=== PATIENT | female | born 1965 | race Caucasian/White ===

== ENCOUNTER 2018-12-25 19:07 | Inpatient (IN) | payer OTHER ==
[2018-12-25 19:42] VITALS: BMI 28.7
--- NOTE | 2018-12-25 20:13 | HP ---
COWS - Scale Resting Pulse: 1= [place] 81-100 Sweatin=Flushed/Facial Moisture Restless Observation: 1= Difficult to Sit Still Pupil Size: 2= Moderately Dilated Bone or Joint Aches: 2= Severe Diffuse Aches Runny Nose/ Eye Tearin= Constantly Teary/Runny GI Upset > 30mins: 1= Stomach Cramp Tremor Observation: 4= Gross Tremor/Twitching Yawning Observation: 0= None Anxiety or Irritability: 1=Feels Anxious/Irritable Goose Flesh Skin: 0=Smooth Skin COWS Score: 18 CIWA Score Nausea/Vomitin Muscle Tremors: 5 Anxiety: 2 Agitation: 3 Paroxysmal Sweats: 2 Orientation: 0-Oriented Tacttile Disturbances: 2-Mild Itch/Numbness/Burn Auditory Disturbances: 2-Mild Harshness/Frighten Visual Disturbances: 2-Mild Sensitivity Headache: 2-Mild CIWA-Ar Total Score: 23 - Admission Criteria [facility]ASAS Guidelines: Admission for Medically Managed Detox: Requires at least one of the followin. CIWA greater than 12 2. Seizures within the past 24 hours 3. Delirium tremens within the past 24 hours 4. Hallucinations within the past 24 hours 5. Acute intervention needed for co occurring medical disorder 6. Acute intervention needed for co occurring psychiatric disorder 7. Severe withdrawal that cannot be handled at a lower level of care (continued vomiting, continued diarrhea, abnormal vital signs) requiring intravenous medication and/or fluids 8. Admission ROS [facility] Chief Complaint: DEPENDENT ON HEROIN, ETOH, COCAINE AND XANAX Allergies/Adverse Reactions: Allergies Allergy/AdvReac Type Severity Reaction Status Date / Time No Known Allergies Allergy Verified 12/25/18 19:53 History of Present Illness: THE PT. IS REQUESTING ADMISSION TO THE DETOX UNIT AND CAME FOR MEDICAL CLEARANCE AND H AND PE - Ebola screening Have you traveled outside of the country in the last 21 days: No (N) Have you had contact with anyone from an Ebola affected area: No Do you have a fever: No - Review of Systems Constitutional: See HPI, Loss of Appetite, Malaise, Weakness EENT: reports: See HPI Respiratory: reports: See HPI, SOB with Exertion, Wheezing Cardiac: reports: See HPI GI: reports: See HPI, Nausea, Poor Appetite, Abdominal cramping : reports: See HPI Musculoskeletal: reports: See HPI, Muscle Pain, Muscle Weakness Integumentary: reports: See HPI, Flushing, Sweating Neuro: reports: See HPI, Headache, Tremors, Weakness Endocrine: reports: See HPI Hematology: reports: See HPI Psychiatric: reports: Judgement Intact, Orientated x3, Anxious, Depressed Patient History - Patient Medical History Hx Asthma: Yes Hx Chronic Obstructive Pulmonary Disease (COPD): No Hx Cardiac Disorders: No Hx Hypertension: No Hx Seizures: No Hx Diabetes: No Hx Gastrointestinal Disorders: No Hx Genitourinary Disorders: No Hx Sexually Transmitted Disorders: No Hx Renal Disease (ESRD): No Hx Human Immunodeficiency Virus (HIV): Yes Hx Hepatitis C: No Hx Depression: Yes (and anxiety) Hx Suicide Attempt: No Hx Schizophrenia: No - Patient Surgical History Past Surgical History: No Hx Neurologic Surgery: No Hx Cataract Extraction: No Hx Cardiac Surgery: No Hx Lung Surgery: No Hx Breast Surgery: No Hx Breast Biopsy: No Hx Abdominal Surgery: No Hx Appendectomy: No Hx Cholecystectomy: No Hx Genitourinary Surgery: No Hx Section: No Hx Orthopedic Surgery: Yes (D[facility]NELL. HIP REPLACEMENTS) Anesthesia Reaction: No - PPD History Previous Implant?: Yes Documented Results: Negative w/o proof - Reproductive History Patient is a Female of Child Bearing Age (11 -55 yrs old): Yes LMP comment: 2017 Patient : No - Smoking Cessation Smoking history: Current every day smoker Have you smoked in the past 12 months: Yes Aproximately how many cigarettes per day: 3 Hx Chewing Tobacco Use: No Initiated information on smoking cessation: Yes 'Breaking Loose' booklet given: 12/25/18 - Substance & Tx. History Hx Alcohol Use: Yes Hx Substance Use: Yes Substance Use Type: Alcohol, Cocaine, Heroin, Tranquilizers - Substances abused Alcohol Substance route: Oral Frequency: Daily Amount used: LIQUOR- 2 PINTS, BEER- 1 QUART Age of first use: 19 Date of last use: 12/24/18 Heroin Substance route: Inhalation Frequency: Daily Amount used: 10 BAGS Age of first use: 19 Date of last use: 12/24/18 Alprazolam (Xanax) Substance route: Oral Frequency: Daily Amount used: 8MG Age of first use: 19 Date of last use: 12/24/18 Cocaine Substance route: Inhalation Frequency: Daily Amount used: $20N WORTH Age of first use: 19 Date of last use: 12/24/18 Family Disease History - Family Disease History Family History: Denies Admission Physical Exam [facility] - Vital Signs Vital Signs: Vital Signs - 24 hr 12/25/18 12/25/18 19:39 19:53 Temperature 98.1 F 98.1 F Pulse Rate 86 86 Respiratory 18 18 Rate Blood Pressure 146/76 146/76 - Physical General Appearance: Yes: No Apparent Distress, Nourished, Appropriately Dressed , Tremorous, Sweating, Anxious HEENTM: Yes: Hearing grossly Normal, Normocephalic, Normal Voice, JAMIE, Pharynx Normal, Nasal Congestion Respiratory: Yes: Chest Non-Tender, No Respiratory Distress, No Accessory Muscle Use, Rhonchi, Wheezing Neck: Yes: No masses,lesions,Nodules, Supple, Trachea in good position Breast: Yes: Breast Exam Deferred, Axillae without masses Cardiology: Yes: Regular Rhythm, S1, S2, Tachycardia Abdominal: Yes: Normal Bowel Sounds, Non Tender, Soft, Distended Back: Yes: Normal Inspection Musculoskeletal: Yes: full range of Motion, Gait Steady, Pelvis Stable, Muscle Pain, Muscle weakness Extremities: Yes: Normal Capillary Refill, Normal Inspection, Normal Range of Motion, Non-Tender, Tremors Neurological: Yes: sliver cutter II-XII NML intact, Fully Oriented, Alert, Motor Strength 5/5, Normal Response Integumentary: Yes: Normal Color, Warm, Moist Lymphatic: Yes: Within Normal Limits - Diagnostic (1) Heroin dependence Current Visit: Yes Status: Chronic (2) EtOH dependence Current Visit: Yes Status: Chronic Qualifiers: Substance use status: uncomplicated Qualified Code(s): F10.20 - Alcohol dependence, uncomplicated (3) Cocaine dependence Current Visit: Yes Status: Chronic Qualifiers: Substance use status: uncomplicated Qualified Code(s): F14.20 - Cocaine dependence, uncomplicated (4) Benzodiazepine dependence Current Visit: Yes Status: Chronic (5) Anxiety and depression Current Visit: Yes Status: Chronic (6) AIDS Current Visit: Yes Status: Chronic (7) Asthma Current Visit: Yes Status: Chronic Qualifiers: Asthma severity: unspecified severity Asthma complication type: uncomplicated Cleared for Admission [facility] - Detox or Rehab [facility] Level of Care: Medically Managed Detox Regimen/Protocol: Methadone/Librium Breathalyzer - Breathalyzer Breathalyzer: 0 Urine Drug Screen - Test Device Lot number: [id number] Expiration date: 09/14/20 - Control Is test valid?: Yes - Results Drug screen NEGATIVE: No Urine drug screen results: RAYNA-Cocaine, FEN-Fentanyl, MOP-Opiates, OXY-Oxycodone , MTD-Methadone, BZO-Benzodiazepines Inpatient Rehab Admission - Rehab Decision to Admit Inpatient rehab admission?: No
[2018-12-25] MEDS ORDERED: MAG HYDROX/AL HYDROX/SIMETH 30 ML UNIT-DOSE CUP PO PRN (20:20)
[2018-12-25] MEDS ORDERED: ACETAMINOPHEN 325 MG TABLET (FP) PO PRN (20:20)
[2018-12-25] MEDS ORDERED: MAGNESIUM CITRATE 300 ML BOTTLE PO PRN (20:20)
[2018-12-25] MEDS ORDERED: chlordiazePOXIDE HCL 25 MG CAPSULE PO PRN (20:20)
[2018-12-25] MEDS ORDERED: MAGNESIUM HYDROX 2400MG/30ML ORAL SUSPENSION 30 ML CUP PO PRN (20:20)
[2018-12-25] MEDS ORDERED: MENTHOL/PHENOL 1 EACH UD MM PRN (20:20)
[2018-12-25] MEDS ORDERED: NICOTINE POLACRILEX 2 MG GUM BUC PRN (20:20)
[2018-12-25] MEDS ORDERED: cloNIDine HCL 0.1 MG TABLET PO PRN (20:20)
[2018-12-25] MEDS: SENNOSIDES 8.6MG TABLET (FP) PO SCH (22:15)
[2018-12-25] MEDS: amLODIPine BESYLATE 10 MG TABLET (FP) PO SCH (22:15)
[2018-12-25] MEDS: ATORVASTATIN CA 20 MG TABLET (FP) PO SCH (22:15)
[2018-12-25] MEDS: chlordiazePOXIDE HCL 25 MG CAPSULE PO SCH (22:15)
[2018-12-25] MEDS: ASPIRIN 81 MG CHEWABLE TABLETS PO SCH (22:15)
[2018-12-25] MEDS: THIAMINE HCL 100 MG TABLET (FP) PO SCH (22:16)
[2018-12-25] MEDS ORDERED: METHADONE HCL 10 MG TABLET (FOR DETOX USE ONLY) PO ONE (23:00)
[2018-12-26] MEDS: chlordiazePOXIDE HCL 25 MG CAPSULE PO SCH ×4 (06:49→22:08)
[2018-12-26] MEDS: ALBUTEROL SO4 2.5/IPRATROPIUM 0.5 INH SOL 3 ML VIAL.NEB. NEB PRN (06:55)
[2018-12-26] MEDS ORDERED: METHADONE HCL 5 MG TABLET (FOR DETOX USE ONLY) PO ONE (10:00)
--- NOTE | 2018-12-26 10:01 | EKG ---
Test Reason : Blood Pressure : / mmHG Vent. Rate : 072 BPM Atrial Rate : 072 BPM P-R Int : 138 ms QRS Dur : 078 ms QT Int : 404 ms P-R-T Axes : 068 050 044 degrees QTc Int : 442 ms NORMAL SINUS RHYTHM BIATRIAL ENLARGEMENT ABNORMAL ECG NO PREVIOUS ECGS AVAILABLE Confirmed by BAIRON SHEIKH, SISSY ([id number]) on 12/26/2018 10:00:51 AM Referred By: Confirmed By:SISSY WADDELL MD
[2018-12-26 10:03] LABS: ALBUMIN 3.5 g/dl (3.4-5.0); BILIRUBIN,TOTAL 0.2 mg/dL (0.2-1); CALCIUM 8.9 mg/dL (8.5-10.1); CREATININE 1.2 mg/dL (0.55-1.3); POTASSIUM 3.1 mmol/L (3.5-5.1)
[2018-12-26 10:07] LABS: HEMATOCRIT 35.1 % (32.4-45.2); HEMOGLOBIN 12.3 GM/dL (10.7-15.3); MCH 36.4 pg (25.7-33.7); MEAN CELL VOLUME 104.1 fl (80-96); MEAN PLT VOLUME 8.2 fl (7.5-11.1); PLATELET COUNT 370 K/MM3 (134-434); RBC 3.37 M/mm3 (3.60-5.2); RDW 13.3 % (11.6-15.6); WHITE BLOOD COUNT 7.5 K/mm3 (4.0-10.0)
[2018-12-26] MEDS: PATIENT'S OWN MEDICATION (NON-FORMULARY) (Elviteg/Cob/Emtri/Tenof Alafen 1 EACH) PO SCH ×2 (10:59→11:01)
[2018-12-26] MEDS: PRENATAL VITAMINS W/ FOLIC ACID TABLET (FP) PO SCH (10:59)
[2018-12-26] MEDS: ASPIRIN 81 MG CHEWABLE TABLETS PO SCH (10:59)
[2018-12-26] MEDS: amLODIPine BESYLATE 10 MG TABLET (FP) PO SCH (10:59)
[2018-12-26] MEDS: METHOCARBAMOL 500 MG TABLET PO PRN (13:05)
[2018-12-26] MEDS ORDERED: TRIMETHOBENZAMIDE HCL 200MG/2ML INJ IM PRN (14:27)
[2018-12-26] MEDS ORDERED: POTASSIUM CHLORIDE TABS 20 MEQ TABLET.ER (FP) PO ONE (14:31)
--- NOTE | 2018-12-26 14:33 | PN ---
S CIWA - CIWA Score Nausea/Vomitin Muscle Tremors: 3 Anxiety: 4-Mod. Anxious/Guarded Agitation: 1-Slight > Activity Paroxysmal Sweats: No Perspiration Orientation: 2-Disoriented Date<2 days Tacttile Disturbances: 0-None Auditory Disturbances: 0-None Visual Disturbances: 2-Mild Sensitivity Headache: 2-Mild CIWA-Ar Total Score: 17 [facility] COWS - Scale Resting Pulse: 0= [place] 80 or Below Sweatin= Chills/Flushing Restless Observation: 1= Difficult to Sit Still Pupil Size: 0= Normal to Room Light Bone or Joint Aches: 2= Severe Diffuse Aches Runny Nose/ Eye Tearin= None GI Upset > 30mins: 2= Nausea/Diarrhea Tremor Observation of Outstretched Hands: 2= Slight Tremor Visible Yawning Observation: 1= 1-2x During Session Anxiety or Irritability: 2=Irritable/Anxious Goose Flesh Skin: 3=Piloerection COWS Score: 14 [facility] Progress Note (SOAP) Subjective: Body Aches, H/A, Nausea, Tremors, Hot / Cold Sensations, Diarrhea, Interrupted Sleep. Objective: PATIENT A & O X 2 (UNCERTAIN ABOUT CURRENT DAY / DATE). PATIENT OBSERVED AMBULATING ON UNIT UNASSISTED. IN NO ACUTE DISTRESS. 12/26/18 14:30 Vital Signs Temperature 98.4 F 12/26/18 13:16 Pulse Rate 77 12/26/18 13:16 Respiratory Rate 18 12/26/18 13:16 Blood Pressure 114/81 12/26/18 13:16 O2 Sat by Pulse Oximetry (%) Laboratory Tests 12/25/18 12/26/18 12/26/18 19:43 07:40 07:40 WBC 7.5 RBC 3.37 L Hgb 12.3 Hct 35.1 MCV 104.1 H MCH 36.4 H MCHC 35.0 RDW 13.3 Plt Count 370 MPV 8.2 Sodium 137 Potassium 3.1 L Chloride 106 Carbon Dioxide 22 Anion Gap 10 BUN 29 H Creatinine 1.2 Est GFR (CKD-EPI)AfAm 60.60 Est GFR (CKD-EPI)NonAf 52.28 Random Glucose 123 H Calcium 8.9 Total Bilirubin 0.2 AST 15 ALT 24 Alkaline Phosphatase 89 Total Protein 7.0 Albumin 3.5 POC Urine HCG, Qual Negative RPR Titer 12/26/18 07:40 WBC RBC Hgb Hct MCV MCH MCHC RDW Plt Count MPV Sodium Potassium Chloride Carbon Dioxide Anion Gap BUN Creatinine Est GFR (CKD-EPI)AfAm Est GFR (CKD-EPI)NonAf Random Glucose Calcium Total Bilirubin AST ALT Alkaline Phosphatase Total Protein Albumin POC Urine HCG, Qual RPR Titer Nonreactive LABS NOTED. Assessment: 12/26/18 14:32 WITHDRAWAL SYMPTOMS. HYPOKALEMIA. Plan: CONTINUE DETOX. INCREASE DAILY PO FLUID / WATER INTAKE. K-DUR, 20 MEQ PO BID. REPEAT K LEVEL ON 12/28/2018. PRN PEPTO-BISMOL PO FOR DIARRHEA. PRN TIGAN IM FOR NAUSEA.
[2018-12-26] MEDS: POTASSIUM CHLORIDE TABS 20 MEQ TABLET.ER (FP) PO SCH (17:33)
[2018-12-26] MEDS: ATORVASTATIN CA 20 MG TABLET (FP) PO SCH (22:08)
[2018-12-26] MEDS: THIAMINE HCL 100 MG TABLET (FP) PO SCH (22:08)
[2018-12-26] MEDS: SENNOSIDES 8.6MG TABLET (FP) PO SCH (22:08)
[2018-12-26] MEDS: MELATONIN 5 MG TABLETS PO PRN (22:34)
[2018-12-26] MEDS: ACETAMINOPHEN 325 MG TABLET (FP) PO PRN (22:34)
[2018-12-27] MEDS: chlordiazePOXIDE HCL 25 MG CAPSULE PO SCH ×3 (05:43→18:13)
--- NOTE | 2018-12-27 09:19 | PN ---
S CIWA - CIWA Score Nausea/Vomitin Muscle Tremors: 2 Anxiety: 3 Agitation: 2 Paroxysmal Sweats: 1-Minimal Palms Moist Orientation: 0-Oriented Tacttile Disturbances: 1-Very Mild Itch/Numbness Auditory Disturbances: 1-Very Mild Visual Disturbances: 0-None Headache: 2-Mild CIWA-Ar Total Score: 14 [facility] Progress Note (SOAP) Subjective: alert,irritable,anxious,nausea,loose bowel movement,interrupted sleep Objective: 12/27/18 09:18 Vital Signs Temperature 97.8 F 12/27/18 06:00 Pulse Rate 65 12/27/18 06:00 Respiratory Rate 16 12/27/18 06:00 Blood Pressure 112/57 L 12/27/18 06:00 O2 Sat by Pulse Oximetry (%) Assessment: 12/27/18 09:18 withdrawal symptom 12/27/18 09:20 on k dur 20 meq po bid for hypokalemia k is 3.1 Plan: continue detox,repeat k on wed12/28/18
[2018-12-27] MEDS ORDERED: METHADONE HCL 10 MG TABLET (FOR DETOX USE ONLY) PO ONE (10:00)
[2018-12-27] MEDS: amLODIPine BESYLATE 10 MG TABLET (FP) PO SCH (10:43)
[2018-12-27] MEDS: ASPIRIN 81 MG CHEWABLE TABLETS PO SCH (10:43)
[2018-12-27] MEDS: POTASSIUM CHLORIDE TABS 20 MEQ TABLET.ER (FP) PO SCH ×2 (10:43→18:13)
[2018-12-27] MEDS: PRENATAL VITAMINS W/ FOLIC ACID TABLET (FP) PO SCH (10:43)
[2018-12-27] MEDS: PATIENT'S OWN MEDICATION (NON-FORMULARY) (Elviteg/Cob/Emtri/Tenof Alafen 1 EACH) PO SCH (10:44)
[2018-12-27] MEDS: BISMUTH SUBSALICYLATE 524 MG/30 ML UD PO PRN (10:48)
--- NOTE | 2018-12-27 14:30 | CONSULT ---
[facility] Psychiatric Consult - Data Date of interview: 12/27/18 Admission source: [facility] Identifying data: First admission to [facility] for this 53 y/o female self-referred for detoxification (alcohol, opioid, benzodiazepine, cocaine). Examined on . Patient is single, a mother of seven, domiciled, unemployed and supported on SSI benefits. Substance Abuse History: Confirmed by patient in this session : Smoking history : Current every day smoker. Have you smoked in the past 12 months: Yes. Aproximately how many cigarettes per day: 3. Hx Chewing Tobacco Use: No. Initiated information on smoking cessation: Yes. 'Breaking Loose' booklet given : 12/25/18. - Substance & Tx. History. Hx Alcohol Use: Yes. Hx Substance Use : Yes. Substance Use Type: Alcohol, Cocaine, Heroin, Tranquilizers. - Substances abused. Alcohol. Substance route: Oral. Frequency: Daily. Amount used: LIQUOR- 2 PINTS, BEER- 1 QUART. Age of first use: 19. Date of last use: 12/24/18. Heroin. Substance route: Inhalation. Frequency: Daily. Amount used: 10 BAGS. Age of first use: 19. Date of last use: . Alprazolam (Xanax). Substance route: Oral. Frequency: Daily. Amount used: 8MG. Age of first use: 19. Date of last use: 12/24/18. Cocaine. Substance route: Inhalation. Frequency: Daily. Amount used: $20N WORTH. Age of first use: 19. Date of last use: 12/24/18 Medical History: HIV ifection (on ART medications), joint pain and a history of bilateral hip replacement. Psychiatric History: Patient reports a history of psychiatric hospitalizations ( [facility], [facility]). Diagnosed with MDD. Treated with seroquel 200 mg/hs + zoloft 50 mg/day. Ms Swenson sees a psychiatrist at [facility] in [facility] [place] ([phone]). History of suicide attempt via wrist-cutting two years ago (self-report). Physical/Sexual Abuse/Trauma History: Patient declines to discuss this domain. Additional Comment: Urine drug screen results: RAYNA-Cocaine, FEN-Fentanyl, MOP- Opiates, OXY-Oxycodone, MTD-Methadone, BZO-Benzodiazepines. Noted. Mental Status Exam - Mental Status Exam Alert and Oriented to: Time, Place, Person Cognitive Function: Good Patient Appearance: Well Groomed (overweight) Mood: Anxious, Apprehensive Affect: Appropriate, Normal Range Patient Behavior: Fatigued, Talkative, Appropriate, Cooperative Speech Pattern: Clear Voice Loudness: Normal Thought Process: Goal Oriented Thought Disorder: Not Present Hallucinations: Denies Suicidal Ideation: Denies Homicidal Ideation: Denies Insight/Judgement: Poor Sleep: Poorly, Difficulty falling asleep Appetite: Good Gait/Station: Normal Psychiatric Findings - Problem List (Logan 1, 2,3) (1) EtOH dependence Current Visit: Yes Status: Chronic Qualifiers: Substance use status: uncomplicated Qualified Code(s): F10.20 - Alcohol dependence, uncomplicated (2) Benzodiazepine dependence Current Visit: Yes Status: Chronic (3) Cocaine dependence Current Visit: Yes Status: Chronic Qualifiers: Substance use status: uncomplicated Qualified Code(s): F14.20 - Cocaine dependence, uncomplicated (4) Heroin dependence Current Visit: Yes Status: Chronic (5) Nicotine dependence Current Visit: Yes Status: Chronic (6) Substance induced mood disorder Current Visit: Yes Status: Chronic (7) History of depression Current Visit: Yes Status: Chronic (8) Insomnia Current Visit: Yes Status: Chronic - Initial Treatment Plan Initial Treatment Plan: Psychoeducation. Sleep hygiene. Detoxification. Medications : seroquel 200 mg po hs + zoloft 50 mg po daily. Side effects/ benefits of both drugs are discussed with patient. She gave verbal consent to MD. Truong.
[2018-12-27] MEDS: ALBUTEROL SO4 8 GM HFA INHALER IH PRN (19:49)
[2018-12-27] MEDS: THIAMINE HCL 100 MG TABLET (FP) PO SCH (22:01)
[2018-12-27] MEDS: chlordiazePOXIDE HCL 10 MG CAPSULE PO SCH (22:01)
[2018-12-27] MEDS: ATORVASTATIN CA 20 MG TABLET (FP) PO SCH (22:01)
[2018-12-27] MEDS: QUEtiapine FUMARATE 200 MG TABLET PO SCH (22:01)
[2018-12-27] MEDS: MELATONIN 5 MG TABLETS PO PRN (22:02)
[2018-12-27] MEDS: SENNOSIDES 8.6MG TABLET (FP) PO SCH (22:02)
[2018-12-27] MEDS ORDERED: chlordiazePOXIDE HCL 10 MG CAPSULE PO PRN (23:00)
[2018-12-28] MEDS ORDERED: METHADONE HCL 5 MG TABLET (FOR DETOX USE ONLY) PO ONE (06:00)
[2018-12-28] MEDS: chlordiazePOXIDE HCL 10 MG CAPSULE PO SCH ×4 (06:25→22:04)
[2018-12-28] MEDS ORDERED: SERTRALINE HCL 50 MG TABLET (FP) PO SCH (10:00)
[2018-12-28] MEDS: ASPIRIN 81 MG CHEWABLE TABLETS PO SCH (10:42)
[2018-12-28] MEDS: PRENATAL VITAMINS W/ FOLIC ACID TABLET (FP) PO SCH (10:42)
[2018-12-28] MEDS: POTASSIUM CHLORIDE TABS 20 MEQ TABLET.ER (FP) PO SCH (10:43)
[2018-12-28] MEDS: amLODIPine BESYLATE 10 MG TABLET (FP) PO SCH (10:44)
[2018-12-28] MEDS: SERTRALINE HCL 50 MG TABLET (FP) PO SCH (10:44)
[2018-12-28] MEDS: PATIENT'S OWN MEDICATION (NON-FORMULARY) (Elviteg/Cob/Emtri/Tenof Alafen 1 EACH) PO SCH (10:47)
--- NOTE | 2018-12-28 14:27 | PN ---
[facility] CIWA - CIWA Score Nausea/Vomitin Muscle Tremors: 2 Anxiety: 3 Agitation: 1-Slight > Activity Paroxysmal Sweats: 2 Orientation: 0-Oriented Tacttile Disturbances: 0-None Auditory Disturbances: 0-None Visual Disturbances: 1-Very Mild Sensitivity Headache: 0-None Present CIWA-Ar Total Score: 11 [facility] Progress Note (SOAP) Subjective: Anxious, Diarrhea, Body Aches, Nausea, Hot Cold Sensations. Objective: PATIENT A & O X 3, OBSERVED AMBULATING ON UNIT UNASSISTED. IN NO ACUTE DISTRESS. 12/28/18 14:30 Vital Signs Temperature 97.0 F L 12/28/18 13:13 Pulse Rate 77 12/28/18 13:13 Respiratory Rate 18 12/28/18 13:13 Blood Pressure 120/67 12/28/18 13:13 O2 Sat by Pulse Oximetry (%) Laboratory Tests 12/25/18 12/26/18 12/26/18 19:43 07:40 07:40 WBC 7.5 RBC 3.37 L Hgb 12.3 Hct 35.1 MCV 104.1 H MCH 36.4 H MCHC 35.0 RDW 13.3 Plt Count 370 MPV 8.2 Sodium 137 Potassium 3.1 L Chloride 106 Carbon Dioxide 22 Anion Gap 10 BUN 29 H Creatinine 1.2 Est GFR (CKD-EPI)AfAm 60.60 Est GFR (CKD-EPI)NonAf 52.28 Random Glucose 123 H Calcium 8.9 Total Bilirubin 0.2 AST 15 ALT 24 Alkaline Phosphatase 89 Total Protein 7.0 Albumin 3.5 POC Urine HCG, Qual Negative RPR Titer 12/26/18 12/28/18 07:40 07:00 WBC RBC Hgb Hct MCV MCH MCHC RDW Plt Count MPV Sodium Potassium 4.0 Chloride Carbon Dioxide Anion Gap BUN Creatinine Est GFR (CKD-EPI)AfAm Est GFR (CKD-EPI)NonAf Random Glucose Calcium Total Bilirubin AST ALT Alkaline Phosphatase Total Protein Albumin POC Urine HCG, Qual RPR Titer Nonreactive LABS NOTED. RESULT OF REPEAT K LEVEL NOTED. K LEVEL NOW NOTED TO BE WITH NORMAL RANGE. 12/28/18 14:30 Assessment: 12/28/18 14:30 WITHDRAWAL SYMPTOMS. Plan: CONTINUE DETOX. PRN TIGAN IM FOR NAUSEA. D/C SENNA , RECOMMENDED PRN PEPTO-BISMOL PO FOR DIARRHEA. INCREASE DAILY PO FLUID INTAKE. PRN TIGAN IM FOR NAUEA.
[2018-12-28] MEDS: hydrOXYzine PAMOATE 25 MG CAPSULE (FP) PO PRN (16:57)
[2018-12-28] MEDS: ACETAMINOPHEN 325 MG TABLET (FP) PO PRN (16:57)
[2018-12-28] MEDS: BISMUTH SUBSALICYLATE 524 MG/30 ML UD PO PRN (16:58)
[2018-12-28] MEDS: ATORVASTATIN CA 20 MG TABLET (FP) PO SCH (22:03)
[2018-12-28] MEDS: THIAMINE HCL 100 MG TABLET (FP) PO SCH (22:03)
[2018-12-28] MEDS: QUEtiapine FUMARATE 200 MG TABLET PO SCH (22:04)
[2018-12-28] MEDS: IBUPROFEN 400 MG TABLET (FP) PO PRN (22:07)
[2018-12-28] MEDS: ALBUTEROL SO4 8 GM HFA INHALER IH PRN (22:07)
[2018-12-29] MEDS: METHOCARBAMOL 500 MG TABLET PO PRN ×2 (08:30→23:33)
[2018-12-29] MEDS: BISMUTH SUBSALICYLATE 524 MG/30 ML UD PO PRN ×2 (08:30→16:58)
--- NOTE | 2018-12-29 09:50 | PN ---
S Progress Note (SOAP) Subjective: alert,irritable,anxious,interrupted sleep,feel weak Objective: 12/29/18 09:49 Vital Signs Temperature 98.2 F 12/29/18 06:47 Pulse Rate 70 12/29/18 06:47 Respiratory Rate 20 12/29/18 06:47 Blood Pressure 107/54 L 12/29/18 06:47 O2 Sat by Pulse Oximetry (%) Assessment: 12/29/18 09:49 withdrawal symptom Plan: continue detox,discharge in am
[2018-12-29] MEDS: ASPIRIN 81 MG CHEWABLE TABLETS PO SCH (10:23)
[2018-12-29] MEDS: PRENATAL VITAMINS W/ FOLIC ACID TABLET (FP) PO SCH (10:23)
[2018-12-29] MEDS: SERTRALINE HCL 50 MG TABLET (FP) PO SCH (10:23)
[2018-12-29] MEDS: PATIENT'S OWN MEDICATION (NON-FORMULARY) (Elviteg/Cob/Emtri/Tenof Alafen 1 EACH) PO SCH (10:24)
[2018-12-29] MEDS: hydrOXYzine PAMOATE 25 MG CAPSULE (FP) PO PRN (10:27)
[2018-12-29] MEDS: chlordiazePOXIDE HCL 10 MG CAPSULE PO SCH ×2 (11:05→22:09)
[2018-12-29] MEDS: amLODIPine BESYLATE 10 MG TABLET (FP) PO SCH (11:05)
--- NOTE | 2018-12-29 11:33 | PN ---
[facility] Progress Note Note: Patient reports hearing voices, feeling anxious and sleeping poorly. She requests that Seroquel dosage be increased to 300 mg at bedtime because that is is how she was taking it prior to admission. She was seen by Dr Nobles yesterday and Zoloft 50 mg/day and Seroquel 200 mg/hs were ordered. [facility] which is patient's Pharmacy was [phone]. According to pharmacy staff, patient last filled scripts for her medications on 04/21/2018. They were for Zoloft 50 mg'day, Seroquel 300 mg'hs abd Buspar 15 mg/bid. Patient is fully awake, alert and oriented. Will increase Seroquel to 300 mg/hs and resume Buspar 15 mg po BID
[2018-12-29] MEDS: hydrOXYzine PAMOATE 50 MG CAPSULE (FP) PO PRN (13:06)
[2018-12-29] MEDS: ALBUTEROL SO4 2.5/IPRATROPIUM 0.5 INH SOL 3 ML VIAL.NEB. NEB PRN (18:17)
[2018-12-29] MEDS ORDERED: QUEtiapine FUMARATE 300 MG TABLET PO SCH (22:00)
[2018-12-29] MEDS: THIAMINE HCL 100 MG TABLET (FP) PO SCH (22:09)
[2018-12-29] MEDS: ATORVASTATIN CA 20 MG TABLET (FP) PO SCH (22:09)
[2018-12-30] MEDS: IBUPROFEN 400 MG TABLET (FP) PO PRN (03:30)
[2018-12-30 09:05] VITALS: BP 117/58; PULSE 80; TEMP 98.2
--- NOTE | 2018-12-30 09:17 | DS ---
[facility] Detox Discharge Summary Admission Date: 12/25/18 Discharge Date: 12/30/18 - History Present History: Alcohol Dependence, Cocaine Dependence, Sedative Dependence - Physical Exam Results Vital Signs: Vital Signs Temperature 98.2 F 12/30/18 09:04 Pulse Rate 80 12/30/18 09:04 Respiratory Rate 18 12/30/18 09:04 Blood Pressure 117/58 L 12/30/18 09:04 O2 Sat by Pulse Oximetry (%) - Treatment Hospital Course: Detox Protocol Followed, Detoxed Safely, Responded well, Discharged Condition Good, Rehab Referral Accepted - Medication Discharge Medications: Ambulatory Orders Acetaminophen [Tylenol] 500 mg PO PRN 12/25/18 Amlodipine Besylate [Norvasc -] 10 mg PO DAILY 12/25/18 Aspirin [ASA -] 81 mg PO DAILY 12/25/18 Atorvastatin Ca [Lipitor] 20 mg PO HS 12/25/18 Elviteg/Cob/Emtri/Tenof Alafen [Genvoya (Non-Formulary)] 1 each PO DAILY Sennosides [Senna] 8.6 mg PO HS 12/25/18 Quetiapine Fumarate [Seroquel -] 300 mg PO HS 12/26/18 Sertraline HCl [Zoloft -] 50 mg PO DAILY 12/26/18 - Diagnosis (1) Hypokalemia Current Visit: Yes Status: Resolved (2) AIDS Current Visit: Yes Status: Chronic (3) Anxiety and depression Current Visit: Yes Status: Chronic (4) Asthma Current Visit: Yes Status: Chronic Qualifiers: Asthma severity: unspecified severity Asthma complication type: uncomplicated (5) Benzodiazepine dependence Current Visit: Yes Status: Chronic (6) Cocaine dependence Current Visit: Yes Status: Chronic Qualifiers: Substance use status: uncomplicated Qualified Code(s): F14.20 - Cocaine dependence, uncomplicated (7) EtOH dependence Current Visit: Yes Status: Chronic Qualifiers: Substance use status: uncomplicated Qualified Code(s): F10.20 - Alcohol dependence, uncomplicated (8) Heroin dependence Current Visit: Yes Status: Chronic (9) History of depression Current Visit: Yes Status: Chronic (10) Insomnia Current Visit: Yes Status: Chronic (11) Nicotine dependence Current Visit: Yes Status: Chronic (12) Substance induced mood disorder Current Visit: Yes Status: Chronic - AMA Did Patient Leave Against Medical Advice: No (referred to [facility] rehab)
[2018-12-30] MEDS: SERTRALINE HCL 50 MG TABLET (FP) PO SCH (09:46)
[2018-12-30] MEDS: ASPIRIN 81 MG CHEWABLE TABLETS PO SCH (09:46)
[2018-12-30] MEDS: amLODIPine BESYLATE 10 MG TABLET (FP) PO SCH (09:46)
[2018-12-30] MEDS: hydrOXYzine PAMOATE 50 MG CAPSULE (FP) PO PRN (09:49)
[2018-12-30] MEDS: PRENATAL VITAMINS W/ FOLIC ACID TABLET (FP) PO SCH (10:24)
[2018-12-30] MEDS: PATIENT'S OWN MEDICATION (NON-FORMULARY) (Elviteg/Cob/Emtri/Tenof Alafen 1 EACH) PO SCH (10:24)
== END 2018-12-30 11:18 | disposition home or self-care (01) | DRG 773 ==
LOC: YASAS 19:07 → Y6N 21:05
PROVIDERS: ADMIT Surgery; ATTEND Surgery
PROC: HZ2ZZZZ Detoxification Services for Substance Abuse Treatment (ICD-10-PCS; principal; 2018-12-25)
DX: F11.23 Opioid dependence with withdrawal (principal); F10.230 Alcohol dependence with withdrawal, uncomplicated; F13.230 Sedative, hypnotic or anxiolytic dependence with withdrawal, uncomplicated; F14.20 Cocaine dependence, uncomplicated; F17.210 Nicotine dependence, cigarettes, uncomplicated; F19.24 Other psychoactive substance dependence with psychoactive substance-induced mood disorder; F41.9 Anxiety disorder, unspecified; F32.9 Major depressive disorder, single episode, unspecified; E87.6 Hypokalemia; B20 Human immunodeficiency virus [HIV] disease; J45.909 Unspecified asthma, uncomplicated; G47.00 Insomnia, unspecified; R00.0 Tachycardia, unspecified; Z96.643 Presence of artificial hip joint, bilateral
CPT/HCPCS: 36415; 80053; 81025; 84132; 85027; 86593; 93005; 93010; 94640

== ENCOUNTER 2019-08-30 10:20 | Inpatient (IN) | payer OTHER ==
[2019-08-30 11:29] VITALS: BMI 29.9
--- NOTE | 2019-08-30 13:27 | HP ---
COWS - Scale Resting Pulse: 0= [place] 80 or Below Sweatin= Chills/Flushing Restless Observation: 0= Sits Still Pupil Size: 0= Normal to Room Light Bone or Joint Aches: 2= Severe Diffuse Aches Runny Nose/ Eye Tearin= None GI Upset > 30mins: 2= Nausea/Diarrhea Tremor Observation: 0= None Yawning Observation: 0= None Anxiety or Irritability: 2=Irritable/Anxious Goose Flesh Skin: 0=Smooth Skin COWS Score: 7 CIWA Score Nausea/Vomitin-Mild Nausea/No Vomiting Muscle Tremors: None Anxiety: 2 Agitation: 0-Normal Activity Paroxysmal Sweats: 1-Minimal Palms Moist Orientation: 0-Oriented Tacttile Disturbances: 0-None Auditory Disturbances: 2-Mild Harshness/Frighten Visual Disturbances: 2-Mild Sensitivity Headache: 4-Moderately Severe CIWA-Ar Total Score: 12 - Admission Criteria OASAS Guidelines: Admission for Medically Managed Detox: Requires at least one of the followin. CIWA greater than 12 2. Seizures within the past 24 hours 3. Delirium tremens within the past 24 hours 4. Hallucinations within the past 24 hours 5. Acute intervention needed for co occurring medical disorder 6. Acute intervention needed for co occurring psychiatric disorder 7. Severe withdrawal that cannot be handled at a lower level of care (continued vomiting, continued diarrhea, abnormal vital signs) requiring intravenous medication and/or fluids 8. Admitting History and Physical - Smoking History Smoking history: Current every day smoker Have you smoked in the past 12 months: Yes Aproximately how many cigarettes per day: 3 - Alcohol/Substance Use Hx Alcohol Use: Yes Admission [facility] Allergies/Adverse Reactions: Allergies Allergy/AdvReac Type Severity Reaction Status Date / Time No Known Allergies Allergy Verified 08/30/19 11:19 History of Present Illness: This report was requested by: Soumya Cortez | Reference #: [id number] Others' Prescriptions Patient Name: Beth Swenson Date: 1965 Address: [address] [place] [address] Sex: Female Rx Written Rx Dispensed Drug Quantity Days Supply Prescriber Name 08/28/2019 08/28/2019 zolpidem tartrate 10 mg tablet 30 30 Amauri Jaimes MD 05/12/2019 05/15/2019 buprenorphine-naloxone 4-1 mg sl film 30 15 Amauri Jaimes MD 04/25/2019 04/25/2019 zolpidem tartrate 10 mg tablet 30 30 Amauri Jaimes MD 04/25/2019 04/25/2019 buprenorphine-naloxone 4-1 mg sl film 30 15 Amauri Jaimes MD 03/15/2019 03/15/2019 buprenorphine-naloxone 4-1 mg sl film 60 30 Amauri Jaimes MD 01/20/2019 02/03/2019 buprenorphine-naloxone 4-1 mg sl film 60 30 Amauri Jaimes MD 01/18/2019 01/20/2019 buprenorphine-naloxone 4-1 mg sl film 28 14 Triny Duong MD 10/12/2018 10/12/2018 zolpidem tartrate 10 mg tablet 30 30 Amauri Jaimes MD pt here requesting detox from heroin, etoh , xanax, cocaine. Previously at this facility 12/25/18-12/30/18 , completed detox, states went to [facility] rehab , completed , sober x 2 mo then relapsed. heroin- 6 bags/day via inhalation , latest use yesterday cocaine : 30 $ /day via smoking xanax - 2 mg bid latest use 3 days ago etoh - 1 pint daily since age 20 , longest sobriety 1 year . Latest use yesterday , denies seizures , blackouts , claims she has tremors if not drinking , reports she starts drinking around 4 pm " off and on " . tobacco : 08/19 ppd. PMHX ; depression denies SI / HI PShx : darnell THR 2/2 frx 2/2 mechanical fall while intoxicated 2011 Exam Limitations: No Limitations - Ebola screening Have you traveled outside of the country in the last 21 days: No (N) Have you had contact with anyone from an Ebola affected area: No - Review of Systems Constitutional: Loss of Appetite EENT: reports: No Symptoms Reported Respiratory: reports: Shortness of Breath Cardiac: reports: No Symptoms Reported GI: reports: Constipated, Nausea, Poor Appetite : reports: No Symptoms Reported Musculoskeletal: reports: Back Pain Integumentary: reports: No Symptoms Reported Neuro: reports: Headache Endocrine: reports: No Symptoms Reported Psychiatric: reports: Orientated x3 Patient History - Patient Medical History Hx Asthma: Yes Hx Chronic Obstructive Pulmonary Disease (COPD): No Hx Cardiac Disorders: No Hx Hypertension: No Hx Seizures: No Hx Diabetes: No Hx Gastrointestinal Disorders: No Hx Genitourinary Disorders: No Hx Sexually Transmitted Disorders: No Hx Renal Disease (ESRD): No Hx Human Immunodeficiency Virus (HIV): Yes Hx Hepatitis C: No Hx Depression: Yes (and anxiety) Hx Suicide Attempt: No Hx Schizophrenia: No - Patient Surgical History Past Surgical History: No Hx Neurologic Surgery: No Hx Cataract Extraction: No Hx Cardiac Surgery: No Hx Lung Surgery: No Hx Breast Surgery: No Hx Breast Biopsy: No Hx Abdominal Surgery: No Hx Appendectomy: No Hx Cholecystectomy: No Hx Genitourinary Surgery: No Hx Section: No Hx Orthopedic Surgery: Yes (DARNELL. HIP REPLACEMENTS) Anesthesia Reaction: No - PPD History Date: 12/27/18 - Smoking Cessation Smoking history: Current every day smoker Have you smoked in the past 12 months: Yes Aproximately how many cigarettes per day: 3 Hx Chewing Tobacco Use: No Initiated information on smoking cessation: Yes 'Breaking Loose' booklet given: 08/30/19 - Substances abused Alcohol Substance route: Oral Frequency: Daily Amount used: 4 BEER Age of first use: 20 Date of last use: 08/29/19 Heroin Substance route: Inhalation Frequency: Daily Amount used: 6 BAGS Age of first use: 23 Date of last use: 08/29/19 Alprazolam (Xanax) Substance route: Oral Frequency: Daily Amount used: 1 STICK A DAY Age of first use: 50 Date of last use: 08/26/19 Admission Physical Exam S - Vital Signs Vital Signs: Vital Signs - 24 hr 08/30/19 11:14 Temperature 98 F Pulse Rate 65 Respiratory 18 Rate Blood Pressure 99/54 L - Physical General Appearance: Yes: No Apparent Distress HEENTM: Yes: EOMI, Hearing grossly Normal, Normocephalic, Normal Voice, Other ( upper dentures) Respiratory: Yes: Chest Non-Tender, Lungs Clear, Normal Breath Sounds, No Respiratory Distress, No Accessory Muscle Use Neck: Yes: No masses,lesions,Nodules, Trachea in good position Cardiology: Yes: Regular Rhythm, Regular Rate, S1, S2, Diastolic Murmur, Other ( QTc 442 ms 12/25/18 biatrial enlargment pt denies c/o at this time agreeable to f/up w/ cardiology) Abdominal: Yes: Non Tender, Soft Musculoskeletal: Yes: Gait Steady Extremities: Yes: Normal Range of Motion, Non-Tender Neurological: Yes: Fully Oriented, Alert, Motor Strength 5/5 Integumentary: Yes: Warm - Diagnostic (1) Benzodiazepine dependence Current Visit: Yes Status: Chronic (2) Cocaine dependence Current Visit: Yes Status: Chronic Qualifiers: Substance use status: uncomplicated Qualified Code(s): F14.20 - Cocaine dependence, uncomplicated (3) EtOH dependence Current Visit: Yes Status: Chronic Qualifiers: Substance use status: uncomplicated Qualified Code(s): F10.20 - Alcohol dependence, uncomplicated (4) Heroin dependence Current Visit: No Status: Chronic (5) Nicotine dependence Current Visit: Yes Status: Chronic Qualifiers: Nicotine product type: cigarettes Breathalyzer - Breathalyzer Breathalyzer: 0 Urine Drug Screen - Test Device Lot number: [id number] Expiration date: 03/15/21 - Control Is test valid?: Yes - Results Drug screen NEGATIVE: No Urine drug screen results: RAYNA-Cocaine, FEN-Fentanyl, MOP-Opiates Inpatient Rehab Admission - Rehab Decision to Admit Inpatient rehab admission?: No
[2019-08-30] MEDS ORDERED: diazePAM 5 MG TABLET PO PRN (13:47)
[2019-08-30] MEDS ORDERED: BISMUTH SUBSALICYLATE 262 MG/15 ML BTL PO PRN (13:49)
[2019-08-30] MEDS ORDERED: IBUPROFEN 400 MG TABLET (FP) PO PRN (13:49)
[2019-08-30] MEDS ORDERED: MAGNESIUM HYDROX 2400MG/30ML ORAL SUSPENSION 30 ML CUP PO PRN (13:49)
[2019-08-30] MEDS ORDERED: MAGNESIUM CITRATE 300 ML BOTTLE PO PRN (13:49)
[2019-08-30] MEDS ORDERED: MAG HYDROX/AL HYDROX/SIMETH 30 ML UNIT-DOSE CUP PO PRN (13:49)
[2019-08-30] MEDS ORDERED: METHOCARBAMOL 500 MG TABLET PO PRN (13:49)
[2019-08-30] MEDS ORDERED: MENTHOL/PHENOL 1 EACH UD MM PRN (13:49)
[2019-08-30] MEDS ORDERED: ACETAMINOPHEN 325 MG TABLET (FP) PO PRN (13:49)
[2019-08-30] MEDS ORDERED: cloNIDine HCL 0.1 MG TABLET PO PRN (13:52)
[2019-08-30] MEDS ORDERED: METHADONE HCL 10 MG TABLET (FOR DETOX USE ONLY) PO ONE (15:20)
[2019-08-30] MEDS: NICOTINE 7 MG/24 HOURS TOPICAL PATCH TD SCH (16:01)
[2019-08-30] MEDS: diazePAM 5 MG TABLET PO SCH ×2 (16:02→22:20)
[2019-08-30 17:27] LABS: HEMATOCRIT 36.8 % (32.4-45.2); HEMOGLOBIN 12.6 GM/dL (10.7-15.3); MCHC 34.2 g/dl (32.0-36.0); MEAN CELL VOLUME 105.4 fl (80-96); MEAN PLT VOLUME 8.2 fl (7.5-11.1); PLATELET COUNT 277 K/MM3 (134-434); RBC 3.49 M/mm3 (3.60-5.2); RDW 13.4 % (11.6-15.6); WHITE BLOOD COUNT 4.8 K/mm3 (4.0-10.0)
[2019-08-30 17:39] LABS: ALBUMIN 3.8 g/dl (3.4-5.0); ALK PHOS 113 U/L (45-117); ANION GAP 3 MMOL/L (8-16); BILIRUBIN,TOTAL < 0.1 mg/dL (0.2-1); BLOOD UREA NITROGEN 12.8 mg/dL (7-18); CALCIUM 8.7 mg/dL (8.5-10.1); CHLORIDE 106 mmol/L (98-107); CO2 28 mmol/L (21-32); GLUCOSE,RANDOM 76 mg/dL (74-106); SGOT/AST 18 U/L (15-37); SGPT/ALT 23 U/L (13-61); SODIUM 137 mmol/L (136-145); TOT PROT 7.6 g/dl (6.4-8.2)
[2019-08-30] MEDS: ATORVASTATIN CA 20 MG TABLET (FP) PO SCH (22:20)
[2019-08-30] MEDS: THIAMINE HCL 100 MG TABLET (FP) PO SCH (22:20)
[2019-08-30] MEDS: MELATONIN 5 MG TABLETS PO PRN (22:21)
[2019-08-31] MEDS: diazePAM 5 MG TABLET PO SCH (05:44)
[2019-08-31] MEDS: ACETAMINOPHEN 325 MG TABLET (FP) PO PRN ×2 (05:45→22:21)
[2019-08-31] MEDS ORDERED: PATIENT'S OWN MEDICATION (NON-FORMULARY) (Elviteg/Cob/Emtri/Tenof Alafen 1 EACH) PO SCH (10:00)
[2019-08-31] MEDS ORDERED: METHADONE HCL 5 MG TABLET (FOR DETOX USE ONLY) PO ONE (10:00)
[2019-08-31] MEDS ORDERED: diazePAM 5 MG TABLET PO SCH (10:00)
[2019-08-31] MEDS: ASPIRIN 81 MG CHEWABLE TABLETS PO SCH (10:36)
[2019-08-31] MEDS: amLODIPine BESYLATE 10 MG TABLET (FP) PO SCH (10:36)
[2019-08-31] MEDS: GENVOYA PO SCH (10:37)
[2019-08-31] MEDS: PRENATAL VITAMINS W/ FOLIC ACID TABLET (FP) PO SCH (10:38)
[2019-08-31] MEDS: NICOTINE 7 MG/24 HOURS TOPICAL PATCH TD SCH (10:39)
[2019-08-31] MEDS ORDERED: METHOCARBAMOL 500 MG TABLET PO ONE (11:58)
[2019-08-31] MEDS ORDERED: PNEUMOC 13-VAL CONJ-DIP CRM/PF 0.5 ML DISP.SYRIN IM ONE (12:00)
[2019-08-31] MEDS ORDERED: FLU VACCINE QUAD 60 MCG/0.5 ML (MDV 19-20) IM ONE (12:00)
--- NOTE | 2019-08-31 12:00 | PN ---
[facility] CIWA - CIWA Score Nausea/Vomitin-Mild Nausea/No Vomiting Muscle Tremors: 2 Anxiety: 3 Agitation: 1-Slight > Activity Paroxysmal Sweats: 2 Orientation: 0-Oriented Tacttile Disturbances: 0-None Auditory Disturbances: 0-None Visual Disturbances: 1-Very Mild Sensitivity Headache: 1-Very Mild CIWA-Ar Total Score: 11 S COWS - Scale Resting Pulse: 0= [place] 80 or Below Sweatin= Chills/Flushing Restless Observation: 0= Sits Still Pupil Size: 1= Pupils >than Normal Bone or Joint Aches: 1= Mild Discomfort Runny Nose/ Eye Tearin= Nasal Congestion GI Upset > 30mins: 2= Nausea/Diarrhea Tremor Observation of Outstretched Hands: 1= Tremor [place], Not Seen Yawning Observation: 0= None Anxiety or Irritability: 1=Feels Anxious/Irritable Goose Flesh Skin: 0=Smooth Skin COWS Score: 8 BHS Progress Note (SOAP) Subjective: 54 years old female admitted on 08/30/19 for alcohol benzo opiate withdrawal sx management treating with valium and methadone detox regimen reports muscle spasm with lumbar spin aching robaxin 500 mg po x 1 now and lidocaine patch to lumbar spine Objective: 08/31/19 12:00 Vital Signs Temperature 97.9 F 08/31/19 09:09 Pulse Rate 59 L 08/31/19 09:09 Respiratory Rate 18 08/31/19 09:09 Blood Pressure 124/75 08/31/19 09:09 O2 Sat by Pulse Oximetry (%) Laboratory Last Values WBC 4.8 K/mm3 (4.0-10.0) 08/30/19 14:10 RBC 3.49 M/mm3 (3.60-5.2) L 08/30/19 14:10 Hgb 12.6 GM/dL (10.7-15.3) 08/30/19 14:10 Hct 36.8 % (32.4-45.2) 08/30/19 14:10 MCV 105.4 fl (80-96) H 08/30/19 14:10 MCH 36.0 pg (25.7-33.7) H 08/30/19 14:10 MCHC 34.2 g/dl (32.0-36.0) 08/30/19 14:10 RDW 13.4 % (11.6-15.6) 08/30/19 14:10 Plt Count 277 K/MM3 (134-434) D 08/30/19 14:10 MPV 8.2 fl (7.5-11.1) 08/30/19 14:10 Sodium 137 mmol/L (136-145) 08/30/19 14:10 Potassium 4.0 mmol/L (3.5-5.1) 08/30/19 14:10 Chloride 106 mmol/L (98-107) 08/30/19 14:10 Carbon Dioxide 28 mmol/L (21-32) 08/30/19 14:10 Anion Gap 3 MMOL/L (8-16) L 08/30/19 14:10 BUN 12.8 mg/dL (7-18) 08/30/19 14:10 Creatinine 1.0 mg/dL (0.55-1.3) 08/30/19 14:10 Est GFR (CKD-EPI)AfAm 75.01 08/30/19 14:10 Est GFR (CKD-EPI)NonAf 64.72 08/30/19 14:10 Random Glucose 76 mg/dL (74-106) 08/30/19 14:10 Calcium 8.7 mg/dL (8.5-10.1) 08/30/19 14:10 Total Bilirubin < 0.1 mg/dL (0.2-1) L 08/30/19 14:10 AST 18 U/L (15-37) 08/30/19 14:10 ALT 23 U/L (13-61) 08/30/19 14:10 Alkaline Phosphatase 113 U/L (45-117) 08/30/19 14:10 Total Protein 7.6 g/dl (6.4-8.2) 08/30/19 14:10 Albumin 3.8 g/dl (3.4-5.0) 08/30/19 14:10 POC Urine HCG, Qual Negative 08/30/19 12:48 lab noted Assessment: 08/31/19 12:00 alcohol benzo opiate withdrawal Plan: valium and methadone regimens
[2019-08-31] MEDS: LIDOCAINE 5% TOPICAL PATCH TP SCH (13:38)
[2019-08-31] MEDS ORDERED: PROCHLORPERAZINE MALEATE 5 MG TABLET PO ONE (18:30)
[2019-08-31] MEDS: chlordiazePOXIDE HCL 10 MG CAPSULE PO PRN (21:44)
[2019-08-31] MEDS: THIAMINE HCL 100 MG TABLET (FP) PO SCH (21:44)
[2019-08-31] MEDS: ATORVASTATIN CA 20 MG TABLET (FP) PO SCH (21:44)
[2019-08-31] MEDS: MELATONIN 5 MG TABLETS PO PRN (21:45)
[2019-08-31] MEDS: LIDOCAINE PATCH REMOVAL MC SCH (22:51)
[2019-09-01] MEDS ORDERED: diazePAM 5 MG TABLET PO ONE (06:00)
[2019-09-01] MEDS ORDERED: METHADONE HCL 10 MG TABLET (FOR DETOX USE ONLY) PO ONE (10:00)
[2019-09-01] MEDS: LIDOCAINE 5% TOPICAL PATCH TP SCH (10:42)
[2019-09-01] MEDS: GENVOYA PO SCH (10:42)
[2019-09-01] MEDS: ASPIRIN 81 MG CHEWABLE TABLETS PO SCH (10:44)
[2019-09-01] MEDS: PRENATAL VITAMINS W/ FOLIC ACID TABLET (FP) PO SCH (10:44)
[2019-09-01] MEDS: amLODIPine BESYLATE 10 MG TABLET (FP) PO SCH (10:44)
[2019-09-01] MEDS: NICOTINE 7 MG/24 HOURS TOPICAL PATCH TD SCH (10:44)
[2019-09-01] MEDS: chlordiazePOXIDE HCL 10 MG CAPSULE PO PRN ×3 (10:48→22:20)
--- NOTE | 2019-09-01 13:13 | PN ---
[facility] CIWA - CIWA Score Nausea/Vomitin Muscle Tremors: 1-None Visible, but [place] Anxiety: 1-Mildly Anxious Agitation: 1-Slight > Activity Paroxysmal Sweats: 2 Orientation: 0-Oriented Tacttile Disturbances: 2-Mild Itch/Numbness/Burn Auditory Disturbances: 0-None Visual Disturbances: 0-None Headache: 0-None Present CIWA-Ar Total Score: 10 BHS COWS - Scale Resting Pulse: 0= [place] 80 or Below Sweatin= Chills/Flushing Restless Observation: 1= Difficult to Sit Still Pupil Size: 1= Pupils >than Normal Bone or Joint Aches: 2= Severe Diffuse Aches Runny Nose/ Eye Tearin= Nasal Congestion GI Upset > 30mins: 1= Stomach Cramp Tremor Observation of Outstretched Hands: 1= Tremor [place], Not Seen Yawning Observation: 0= None Anxiety or Irritability: 1=Feels Anxious/Irritable Goose Flesh Skin: 0=Smooth Skin COWS Score: 9 S Progress Note (SOAP) Subjective: interrupted sleep, cold sweats,nausea, lbp, Objective: 09/01/19 13:11 Vital Signs Temperature 96.8 F L 09/01/19 09:23 Pulse Rate 55 L 09/01/19 09:23 Respiratory Rate 18 09/01/19 09:23 Blood Pressure 143/77 09/01/19 09:23 O2 Sat by Pulse Oximetry (%) 09/01/19 13:16 Laboratory Tests 08/30/19 08/30/19 08/30/19 12:48 14:10 14:10 WBC 4.8 RBC 3.49 L Hgb 12.6 Hct 36.8 MCV 105.4 H MCH 36.0 H MCHC 34.2 RDW 13.4 Plt Count 277 D MPV 8.2 Sodium 137 Potassium 4.0 Chloride 106 Carbon Dioxide 28 Anion Gap 3 L BUN 12.8 Creatinine 1.0 Est GFR (CKD-EPI)AfAm 75.01 Est GFR (CKD-EPI)NonAf 64.72 Random Glucose 76 Calcium 8.7 Total Bilirubin < 0.1 L AST 18 ALT 23 Alkaline Phosphatase 113 Total Protein 7.6 Albumin 3.8 POC Urine HCG, Qual Negative pt aox3 lying in bed , achy 09/01/19 13:20 Assessment: 09/01/19 13:19 withdrawal sx's Plan: cont. detox increase fluids motrin prn methadone
[2019-09-01] MEDS: hydrOXYzine PAMOATE 25 MG CAPSULE (FP) PO PRN ×2 (13:38→22:22)
[2019-09-01] MEDS: ACETAMINOPHEN 325 MG TABLET (FP) PO PRN ×2 (13:38→23:11)
--- NOTE | 2019-09-01 13:51 | CONSULT ---
[facility] Psychiatric Consult - Data Date of interview: 09/01/19 Admission source: [facility] Identifying data: Revisit to [facility] and admission to [address] [place] [address] for this 54 y/o female self-referred for detoxification treatment. LINDA issues : alcohol , opioid, benzodiazepine, cocaine, nicotine. Patient is single, a mother of seven, domiciled, unemployed and supported on SSI benefits. Substance Abuse History: Discussed with patient in this interview. Details in current [facility] report as follows : Smoking history: Current every day smoker. Have you smoked in the past 12 months: Yes. Aproximately how many cigarettes per day: 3. Hx Chewing Tobacco Use: No. Initiated information on smoking cessation: Yes. 'Breaking Loose' booklet given: 08/30/19. - Substances abused. Alcohol. Substance route: Oral. Frequency: Daily. Amount used: 4 BEER. Age of first use: 20. Date of last use: 08/29/19. Heroin. Substance route: Inhalation. Frequency: Daily. Amount used: 6 BAGS. Age of first use: 23. Date of last use: 08/29/19. Alprazolam (Xanax). Substance route: Oral. Frequency: Daily. Amount used: 1 STICK A DAY. Age of first use: 50. Date of last use: 08/26/19 Medical History: HIV infection (on ART medications), chronic joint pain, bronchial asthma and a history of bilateral hip replacement. Psychiatric History: Patient endorses a history of multiple psychiatric hospitalizations ([facility], [facility]). Diagnosed with MDD. Reportedly treated with seroquel 300 mg/hs + zoloft 50 mg/ day. Ms Swenson sees a psychiatrist, Dr Yony Jaimes, at [facility] in [facility] ([phone]). Confirms history of one suicide attempt ( self-mutilation : wrist-cutting, approximately five years ago). Physical/Sexual Abuse/Trauma History: Patient denies history of abuse. Additional Comment: Urine drug screen results: RAYNA-Cocaine, FEN-Fentanyl, MOP- Opiates. Noted. Mental Status Exam - Mental Status Exam Alert and Oriented to: Time, Place, Person Cognitive Function: Good Patient Appearance: Well Groomed Mood: Anxious, Hopeful Affect: Appropriate, Normal Range Patient Behavior: Fatigued, Appropriate, Cooperative Speech Pattern: Clear, Appropriate Voice Loudness: Normal Thought Process: Goal Oriented Thought Disorder: Not Present Hallucinations: Denies Suicidal Ideation: Denies Homicidal Ideation: Denies Insight/Judgement: Poor Sleep: Fair Appetite: Good Gait/Station: Normal Psychiatric Findings - Problem List ([place] 1, 2,3) (1) Alcohol use disorder Current Visit: Yes Status: Chronic (2) Heroin dependence Current Visit: Yes Status: Chronic (3) Benzodiazepine dependence Current Visit: Yes Status: Chronic (4) Cocaine dependence Current Visit: Yes Status: Chronic Qualifiers: Substance use status: uncomplicated Qualified Code(s): F14.20 - Cocaine dependence, uncomplicated (5) Nicotine dependence Current Visit: Yes Status: Chronic Qualifiers: Nicotine product type: cigarettes (6) Substance induced mood disorder Current Visit: Yes Status: Chronic (7) History of depression Current Visit: Yes Status: Chronic Comment: On medications : quetiapine + sertraline. Followed by Dr Olga Jaimes at [facility] in [facility]. - Initial Treatment Plan Initial Treatment Plan: Psychiatric interview conducted in the presence of medical students (with patient's verbal consent). Psychoeducation. Sleep hygiene. Detoxification in progress. Support. AA/NA meetings. MAT services : explained to patient. Groups. Medications reconciled : seroquel 200 mg po hs ( reduced for prevention of oversedation) + zoloft 50 mg po daily. Attempt made, by group underwriter, to contact Dr Jaimes, at patient's request. I called [phone] : no response. Patient is a good and reliable historian. Appears motivated for psychiatric care. Records ([facility]) are revisited. Side effects/benefits of these medications (seroquel/zoloft) are discussed with patient. Ms Swenson is agreeable with plan of care. Observation.
[2019-09-01] MEDS: THIAMINE HCL 100 MG TABLET (FP) PO SCH (22:18)
[2019-09-01] MEDS: ATORVASTATIN CA 20 MG TABLET (FP) PO SCH (22:18)
[2019-09-01] MEDS: LIDOCAINE PATCH REMOVAL MC SCH (22:19)
[2019-09-01] MEDS: MELATONIN 5 MG TABLETS PO PRN (22:23)
[2019-09-02] MEDS: ACETAMINOPHEN 325 MG TABLET (FP) PO PRN (05:29)
[2019-09-02] MEDS ORDERED: METHADONE HCL 5 MG TABLET (FOR DETOX USE ONLY) PO ONE (06:00)
[2019-09-02 09:14] VITALS: BP 112/72; PULSE 62; TEMP 97
[2019-09-02] MEDS: PRENATAL VITAMINS W/ FOLIC ACID TABLET (FP) PO SCH (10:03)
[2019-09-02] MEDS: GENVOYA PO SCH (10:04)
[2019-09-02] MEDS: NICOTINE 7 MG/24 HOURS TOPICAL PATCH TD SCH (10:04)
[2019-09-02] MEDS: amLODIPine BESYLATE 10 MG TABLET (FP) PO SCH (10:04)
[2019-09-02] MEDS: ASPIRIN 81 MG CHEWABLE TABLETS PO SCH (10:04)
[2019-09-02] MEDS: LIDOCAINE 5% TOPICAL PATCH TP SCH (10:04)
--- NOTE | 2019-09-02 14:27 | DS ---
[facility] Detox Discharge Summary Admission Date: 08/30/19 Discharge Date: 09/02/19 - History Present History: Alcohol Dependence, Opioid Dependence, Sedative Dependence Additional Comments: Pt is medically cleared and discharged today. Pt completed the detox protocol. Pt is encouraged to follow-up with an outpatient CD program and also to follow- up with her pmd. Pt verbalized understanding. Pt is alert and oriented x3 and in no respiratory distress. Pertinent Past History: h/o asthma, alcohol, heroin, and benzo use disorder. - Physical Exam Results Vital Signs: Vital Signs Temperature 97.0 F L 09/02/19 09:14 Pulse Rate 62 09/02/19 09:14 Respiratory Rate 18 09/02/19 09:14 Blood Pressure 112/72 09/02/19 09:14 O2 Sat by Pulse Oximetry (%) Vital Signs 09/02/19 09/02/19 06:37 09:14 Temperature 97 F L 97.0 F L Pulse Rate 53 L 62 Respiratory 18 18 Rate Blood Pressure 107/69 112/72 Laboratory Last Values WBC 4.8 K/mm3 (4.0-10.0) 08/30/19 14:10 RBC 3.49 M/mm3 (3.60-5.2) L 08/30/19 14:10 Hgb 12.6 GM/dL (10.7-15.3) 08/30/19 14:10 Hct 36.8 % (32.4-45.2) 08/30/19 14:10 MCV 105.4 fl (80-96) H 08/30/19 14:10 MCH 36.0 pg (25.7-33.7) H 08/30/19 14:10 MCHC 34.2 g/dl (32.0-36.0) 08/30/19 14:10 RDW 13.4 % (11.6-15.6) 08/30/19 14:10 Plt Count 277 K/MM3 (134-434) D 08/30/19 14:10 MPV 8.2 fl (7.5-11.1) 08/30/19 14:10 Sodium 137 mmol/L (136-145) 08/30/19 14:10 Potassium 4.0 mmol/L (3.5-5.1) 08/30/19 14:10 Chloride 106 mmol/L (98-107) 08/30/19 14:10 Carbon Dioxide 28 mmol/L (21-32) 08/30/19 14:10 Anion Gap 3 MMOL/L (8-16) L 08/30/19 14:10 BUN 12.8 mg/dL (7-18) 08/30/19 14:10 Creatinine 1.0 mg/dL (0.55-1.3) 08/30/19 14:10 Est GFR (CKD-EPI)AfAm 75.01 08/30/19 14:10 Est GFR (CKD-EPI)NonAf 64.72 08/30/19 14:10 Random Glucose 76 mg/dL (74-106) 08/30/19 14:10 Calcium 8.7 mg/dL (8.5-10.1) 08/30/19 14:10 Total Bilirubin < 0.1 mg/dL (0.2-1) L 08/30/19 14:10 AST 18 U/L (15-37) 08/30/19 14:10 ALT 23 U/L (13-61) 08/30/19 14:10 Alkaline Phosphatase 113 U/L (45-117) 08/30/19 14:10 Total Protein 7.6 g/dl (6.4-8.2) 08/30/19 14:10 Albumin 3.8 g/dl (3.4-5.0) 08/30/19 14:10 POC Urine HCG, Qual Negative 08/30/19 12:48 Labs noted. Pertinent Admission Physical Exam Findings: withdrawal symptoms. - Treatment Hospital Course: Detox Protocol Followed, Detoxed Safely, Responded well, Discharged Condition Good - Medication Discharge Medications: Ambulatory Orders Amlodipine Besylate [Norvasc -] 10 mg PO DAILY 12/25/18 Aspirin [ASA -] 81 mg PO DAILY 12/25/18 Atorvastatin Ca [Lipitor] 20 mg PO HS 12/25/18 Elviteg/Cob/Emtri/Tenof Alafen [Genvoya (Non-Formulary)] 1 each PO DAILY Sennosides [Senna] 8.6 mg PO HS 12/25/18 Quetiapine Fumarate [Seroquel -] 300 mg PO HS 12/26/18 Sertraline HCl [Zoloft -] 50 mg PO DAILY 12/26/18 Ibuprofen 400 mg PO TID PRN 08/30/19 Zolpidem Tartrate 10 mg PO HS 08/30/19 - Diagnosis (1) AIDS Status: Chronic (2) Alcohol use disorder Status: Chronic (3) Asthma Status: Chronic Qualifiers: Asthma severity: unspecified severity Asthma complication type: uncomplicated (4) Benzodiazepine dependence Status: Chronic (5) Cocaine dependence Status: Chronic Qualifiers: Substance use status: uncomplicated Qualified Code(s): F14.20 - Cocaine dependence, uncomplicated (6) Heroin dependence Status: Chronic (7) Nicotine dependence Status: Chronic Qualifiers: Nicotine product type: cigarettes - AMA Did Patient Leave Against Medical Advice: No
== END 2019-09-02 11:29 | disposition home or self-care (01) | DRG 773 ==
LOC: YASAS 10:20 → Y3N 15:11
PROVIDERS: ADMIT Allergy & Immunology; ATTEND Allergy & Immunology
PROC: HZ2ZZZZ Detoxification Services for Substance Abuse Treatment (ICD-10-PCS; principal; 2019-08-30)
DX: F11.23 Opioid dependence with withdrawal (principal); F10.230 Alcohol dependence with withdrawal, uncomplicated; F13.230 Sedative, hypnotic or anxiolytic dependence with withdrawal, uncomplicated; F14.20 Cocaine dependence, uncomplicated; F17.210 Nicotine dependence, cigarettes, uncomplicated; F19.24 Other psychoactive substance dependence with psychoactive substance-induced mood disorder; B20 Human immunodeficiency virus [HIV] disease; J45.909 Unspecified asthma, uncomplicated; R01.1 Cardiac murmur, unspecified; Z96.643 Presence of artificial hip joint, bilateral
CPT/HCPCS: 36415; 80053; 81025; 85027; 90670; G0008; G0009; Q2036

== ENCOUNTER 2019-10-05 11:10 | Inpatient (IN) | payer OTHER ==
[~2019-10-05 11:10] MED LIST: QUEtiapine FUMARATE 200 MG TABLET PO SCH
--- NOTE | 2019-10-05 11:30 | BHS.RME ---
Substance Use & Tx History - Substance Use History Alcohol Substance amount: 3/4 quart of beer plus 1 pint bacardi Frequency of use: Daily Substance route: Oral Date of Last Use: 10/05/19 Opiates (Heroin) Substance amount: 8 bags Frequency of use: Daily Substance route: Inhalation (ex: sniffing or snorting) Date of Last Use: 10/05/19 Benzodiazepines Substance amount: xanax 3 mg Frequency of use: Less than 3 times per week Substance route: Oral Date of Last Use: 10/05/19 Physical/Psych/Mental Status - Behavior General Behavior: Increased activity (restlessness, agitation) Eye Contact: Normal - Cooperativeness Cooperativeness: Cooperative - Thinking Thought Processes: Tight, Logical, Goal Directed Thought content: Future oriented - Physical Health Problems Is patient presently having any pain?: No Does patient presently have any injuries (include location): No Does patient currently have a fever: No Is patient : No COWS - Scale Resting Pulse: 0= [place] 80 or Below Sweatin=Flushed/Facial Moisture Restless Observation: 1= Difficult to Sit Still Pupil Size: 1= Pupils >than Normal Bone or Joint Aches: 2= Severe Diffuse Aches Runny Nose/ Eye Tearin= Runny Nose/Eyes GI Upset > 30mins: 2= Nausea/Diarrhea Tremor Observation: 1= Tremor [place], Not Seen Yawning Observation: 2= >3x During Session Anxiety or Irritability: 1=Feels Anxious/Irritable Goose Flesh Skin: 0=Smooth Skin COWS Score: 14 CIWA Nausea/Vomitin Muscle Tremors: 3 Anxiety: 4-Mod. Anxious/Guarded Agitation: 1-Slight > Activity Paroxysmal Sweats: 1-Minimal Palms Moist Orientation: 1-Uncertain about Date Tacttile Disturbances: 0-None Auditory Disturbances: 0-None Visual Disturbances: 0-None Headache: 0-None Present CIWA-Ar Total Score: 13
--- NOTE | 2019-10-05 12:10 | HP ---
COWS - Scale Resting Pulse: 0= [place] 80 or Below Sweatin=Flushed/Facial Moisture Restless Observation: 1= Difficult to Sit Still Pupil Size: 1= Pupils >than Normal Bone or Joint Aches: 2= Severe Diffuse Aches Runny Nose/ Eye Tearin= Runny Nose/Eyes GI Upset > 30mins: 2= Nausea/Diarrhea Tremor Observation: 1= Tremor [place], Not Seen Yawning Observation: 2= >3x During Session Anxiety or Irritability: 1=Feels Anxious/Irritable Goose Flesh Skin: 0=Smooth Skin COWS Score: 14 CIWA Score Nausea/Vomitin Muscle Tremors: 3 Anxiety: 4-Mod. Anxious/Guarded Agitation: 1-Slight > Activity Paroxysmal Sweats: 1-Minimal Palms Moist Orientation: 1-Uncertain about Date Tacttile Disturbances: 0-None Auditory Disturbances: 0-None Visual Disturbances: 0-None Headache: 0-None Present CIWA-Ar Total Score: 13 - Admission Criteria OASAS Guidelines: Admission for Medically Managed Detox: Requires at least one of the followin. CIWA greater than 12 2. Seizures within the past 24 hours 3. Delirium tremens within the past 24 hours 4. Hallucinations within the past 24 hours 5. Acute intervention needed for co occurring medical disorder 6. Acute intervention needed for co occurring psychiatric disorder 7. Severe withdrawal that cannot be handled at a lower level of care (continued vomiting, continued diarrhea, abnormal vital signs) requiring intravenous medication and/or fluids 8. Admitting History and Physical - Admission Chief Complaint: Ms. Swenson presents to [facility] stating " I want to get off the drugs". She is using heroin, Xanax and alcohol. History of Present Illness: Ms. Swenson presents to [facility] stating " I want to get off the drugs". She is using heroin, Xanax and alcohol. She as last here for a 3 day detox in [facility] PMH: HIV post since 2010, undetectable, asthma, HTN, HLD Psych: depression on Zoloft, Seroquel, Ambien PSH; bilateral hip replacement s/p fall Substance use history Heroin: last use this am, first use age: 22y, 8 bags nasal Xanax: 3 mg bid, first use: age 32y, last use: yesterday Alcohol: Beer 3 quarts, one pint kris daily, first use age 21y, last drink this am. No black outs or seizures Cocaine: sniff, $30. per day, first use age 32y, last use yesterday - Past Medical History ...LMP: 08/30/19 - Smoking History Smoking history: Current every day smoker Have you smoked in the past 12 months: Yes Aproximately how many cigarettes per day: 3 - Alcohol/Substance Use Hx Alcohol Use: Yes Admission [facility] Allergies/Adverse Reactions: Allergies Allergy/AdvReac Type Severity Reaction Status Date / Time No Known Allergies Allergy Verified 10/05/19 12:12 Exam Limitations: No Limitations - Ebola screening Have you traveled outside of the country in the last 21 days: No Have you had contact with anyone from an Ebola affected area: No Have you been sick,other than usual withdrawal symptoms: No Do you have a fever: No - Review of Systems Constitutional: Unintentional Wgt. Loss EENT: reports: Nose Congestion Respiratory: reports: No Symptoms reported Cardiac: reports: No Symptoms Reported GI: reports: Nausea : reports: No Symptoms Reported Musculoskeletal: reports: Back Pain, Joint Pain, Muscle Pain Integumentary: reports: No Symptoms Reported Neuro: reports: No Symptoms reported Endocrine: reports: No Symptoms Reported Hematology: reports: No Symptoms Reported Psychiatric: reports: Depressed Patient History - Patient Medical History Hx Asthma: Yes Hx Chronic Obstructive Pulmonary Disease (COPD): No Hx Cardiac Disorders: No Hx Hypertension: No Hx Seizures: No Hx Diabetes: No Hx Gastrointestinal Disorders: No Hx Genitourinary Disorders: No Hx Sexually Transmitted Disorders: No Hx Renal Disease (ESRD): No Hx Human Immunodeficiency Virus (HIV): Yes Hx Hepatitis C: No Hx Depression: Yes (and anxiety) Hx Suicide Attempt: No Hx Schizophrenia: No - Patient Surgical History Past Surgical History: No Hx Neurologic Surgery: No Hx Cataract Extraction: No Hx Cardiac Surgery: No Hx Lung Surgery: No Hx Breast Surgery: No Hx Breast Biopsy: No Hx Abdominal Surgery: No Hx Appendectomy: No Hx Cholecystectomy: No Hx Genitourinary Surgery: No Hx Section: No Hx Orthopedic Surgery: Yes (DARNELL. HIP REPLACEMENTS) Anesthesia Reaction: No - PPD History Date: 12/27/18 - Reproductive History Last Menstrual Period: 08/30/19 - Smoking Cessation Smoking history: Current every day smoker Have you smoked in the past 12 months: Yes Aproximately how many cigarettes per day: 10 Hx Chewing Tobacco Use: No Initiated information on smoking cessation: Yes 'Breaking Loose' booklet given: 10/05/19 Admission Physical Exam [facility] - Physical General Appearance: Yes: Mild Distress HEENTM: Yes: Hearing grossly Normal, Normocephalic, Normal Voice Respiratory: Yes: Lungs Clear, Normal Breath Sounds Neck: Yes: Within Normal Limits Breast: Yes: Breast Exam Deferred Cardiology: Yes: Regular Rate, S1, S2 Abdominal: Yes: Normal Bowel Sounds, Non Tender, Flat, Soft Genitourinary: Yes: Other (deferred) Back: Yes: Normal Inspection Musculoskeletal: Yes: Within Normal Limits Extremities: Yes: Within Normal Limits Neurological: Yes: Alert, Normal Mood/Affect Integumentary: Yes: Within Normal Limits - Diagnostic (1) Opioid dependence with withdrawal Current Visit: Yes Status: Acute (2) Alcohol dependence with withdrawal, uncomplicated Current Visit: Yes Status: Acute (3) History of depression Current Visit: No Status: Chronic Cleared for Admission [facility] - Detox or Rehab [facility] Level of Care: Medically Managed Detox Regimen/Protocol: Methadone/Librium Breathalyzer - Breathalyzer Breathalyzer: 0.016 Urine Drug Screen - Test Device Lot number: [id number] Expiration date: 07/15/21 - Control Is test valid?: Yes - Results Drug screen NEGATIVE: No Urine drug screen results: THC-Marijuana, MOP-Opiates, BZO-Benzodiazepines Inpatient Rehab Admission - Rehab Decision to Admit Inpatient rehab admission?: No
[2019-10-05] MEDS ORDERED: BISMUTH SUBSALICYLATE 262 MG/15 ML BTL PO PRN (12:16)
[2019-10-05] MEDS ORDERED: ACETAMINOPHEN 325 MG TABLET (FP) PO PRN (12:16)
[2019-10-05] MEDS ORDERED: cloNIDine HCL 0.1 MG TABLET PO PRN (12:16)
[2019-10-05] MEDS ORDERED: MAGNESIUM HYDROX 2400MG/30ML ORAL SUSPENSION 30 ML CUP PO PRN (12:16)
[2019-10-05] MEDS ORDERED: MENTHOL/PHENOL 1 EACH UD MM PRN (12:16)
[2019-10-05] MEDS ORDERED: hydrOXYzine PAMOATE 25 MG CAPSULE (FP) PO PRN (12:16)
[2019-10-05] MEDS ORDERED: MAGNESIUM CITRATE 300 ML BOTTLE PO PRN (12:16)
[2019-10-05] MEDS ORDERED: MAG HYDROX/AL HYDROX/SIMETH 30 ML UNIT-DOSE CUP PO PRN (12:16)
[2019-10-05] MEDS ORDERED: chlordiazePOXIDE HCL 25 MG CAPSULE PO PRN (12:16)
[2019-10-05] MEDS ORDERED: ALBUTEROL SO4 HFA INHALER IH PRN (12:18)
[2019-10-05 12:25] VITALS: BMI 30.9
[2019-10-05] MEDS ORDERED: METHADONE HCL 10 MG TABLET (FOR DETOX USE ONLY) PO ONE (12:45)
[2019-10-05] MEDS: ASPIRIN 81 MG CHEWABLE TABLETS PO SCH (13:17)
[2019-10-05] MEDS: amLODIPine BESYLATE 10 MG TABLET (FP) PO SCH (13:17)
[2019-10-05] MEDS: NICOTINE 14 MG/24 HOURS TOPICAL PATCH TD SCH (13:39)
[2019-10-05] MEDS: ELVITEG/COB/EMTRI/TENOF (GENVOYA) TABLET (NF) PO SCH (15:19)
[2019-10-05] MEDS: SERTRALINE HCL 50 MG TABLET (FP) PO SCH (15:19)
[2019-10-05 16:59] LABS: HEMATOCRIT 36.7 % (32.4-45.2); HEMOGLOBIN 12.7 GM/dL (10.7-15.3); MCH 35.7 pg (25.7-33.7); MCHC 34.5 g/dl (32.0-36.0); MEAN CELL VOLUME 103.4 fl (80-96); MEAN PLT VOLUME 8.1 fl (7.5-11.1); PLATELET COUNT 346 K/MM3 (134-434); RBC 3.55 M/mm3 (3.60-5.2); RDW 14.6 % (11.6-15.6); WHITE BLOOD COUNT 6.9 K/mm3 (4.0-10.0)
[2019-10-05 17:17] LABS: ALBUMIN 3.9 g/dl (3.4-5.0); BILIRUBIN,TOTAL 0.2 mg/dL (0.2-1); BLOOD UREA NITROGEN 20.9 mg/dL (7-18); CREATININE 0.9 mg/dL (0.55-1.3); POTASSIUM 4.1 mmol/L (3.5-5.1)
[2019-10-05] MEDS: chlordiazePOXIDE HCL 25 MG CAPSULE PO SCH ×2 (17:48→22:03)
[2019-10-05] MEDS: SENNOSIDES 8.6MG TABLET (FP) PO SCH (22:03)
[2019-10-05] MEDS: THIAMINE HCL 100 MG TABLET (FP) PO SCH (22:03)
[2019-10-05] MEDS: ATORVASTATIN CA 20 MG TABLET (FP) PO SCH (22:03)
[2019-10-05] MEDS: MELATONIN 5 MG TABLETS PO PRN (22:04)
[2019-10-05] MEDS: IBUPROFEN 400 MG TABLET (FP) PO PRN (22:07)
[2019-10-06] MEDS: ACETAMINOPHEN 325 MG TABLET (FP) PO PRN ×2 (05:58→17:40)
[2019-10-06] MEDS: chlordiazePOXIDE HCL 25 MG CAPSULE PO SCH ×4 (05:59→22:30)
[2019-10-06] MEDS ORDERED: METHADONE HCL 5 MG TABLET (FOR DETOX USE ONLY) ONE (09:07)
[2019-10-06] MEDS ORDERED: METHADONE HCL 10 MG TABLET (FOR DETOX USE ONLY) ONE (09:08)
[2019-10-06] MEDS ORDERED: METHADONE (DETOX) 20 MG, METHADONE (DETOX) 5 MG PO ONE (10:00)
[2019-10-06] MEDS: ASPIRIN 81 MG CHEWABLE TABLETS PO SCH (10:39)
[2019-10-06] MEDS: amLODIPine BESYLATE 10 MG TABLET (FP) PO SCH (10:39)
[2019-10-06] MEDS: ELVITEG/COB/EMTRI/TENOF (GENVOYA) TABLET (NF) PO SCH (10:39)
[2019-10-06] MEDS: NICOTINE 14 MG/24 HOURS TOPICAL PATCH TD SCH (10:40)
[2019-10-06] MEDS: PRENATAL VITAMINS W/ FOLIC ACID TABLET (FP) PO SCH (10:40)
[2019-10-06] MEDS: SERTRALINE HCL 50 MG TABLET (FP) PO SCH ×2 (10:41→11:31)
--- NOTE | 2019-10-06 10:53 | CONSULT ---
[facility] Psychiatric Consult - Data Date of interview: 10/06/19 (Self-referr) Admission source: Self-referred Identifying data: Ms Swenson is a 54 years old female, mother of 7 children, unemployed receiving SSI, domiciled seeking detox treatment for alcohol, opioid, cocaine and benzodiazepine Substance Abuse History: Reports history of alcohol, heroin, cocaine and xanax use. Refer to addiction counselor's summary for further information Medical History: Significant of HIV infection (on ART medications), chronic joint pain, bronchial asthma and a history of bilateral hip replacement in 2011- 2012. Smokes 10 cigarettes Psychiatric History: Patient is known for two previous admissions to this facility. Historical narrative remains consistent for the most part. She reports her first psychiatric contact occured 15 years ago following her mother' s . She was admitted to [facility], diagnosed with MDD and started on psychotropic medications. Reports a subsequent psychiatric hospitalization in 2018 at [facility]. Reports that she is not currently seeing a psychiatrist but she has her medications(Seroquel 300 mg/ hs, Zoloft 50 mg/day) prescribed by Dr Yony Jaimes, her primary care physician at [facility] in [facility] ([phone]). Reported she has one previous suicide attempt (self-mutilation : wrist-cutting, approximately five years ago) . During her most recent admission to this facility, she saw Dr Nobles on and she was prescribed Seroquel 200 mg/hs and Zoloft 50 mg/day. At present, reports feeling mildly depressed and sleeping poorly Physical/Sexual Abuse/Trauma History: Denies history of abuse as a child and DV relationship Mental Status Exam - Mental Status Exam Alert and Oriented to: Time, Place, Person Patient Appearance: Well Groomed Mood: Depressed (mildly) Affect: Appropriate Patient Behavior: Cooperative Speech Pattern: Clear Voice Loudness: Normal Thought Process: Intact, Goal Oriented Hallucinations: Denies Homicidal Ideation: Denies Insight/Judgement: Poor Sleep: Poorly Appetite: Poor Muscle strength/Tone: Normal Gait/Station: Normal Psychiatric Findings - Problem List ([place] 1, 2,3) (1) MDD (major depressive disorder), recurrent episode, moderate Current Visit: Yes Status: Chronic (2) Substance induced mood disorder Current Visit: Yes Status: Acute (3) Substance-induced sleep disorder Current Visit: Yes Status: Acute (4) Alcohol dependence with withdrawal, uncomplicated Current Visit: Yes Status: Acute (5) Opioid dependence with withdrawal Current Visit: Yes Status: Acute (6) Sedative hypnotic or anxiolytic dependence Current Visit: Yes Status: Acute (7) Cocaine dependence Current Visit: Yes Status: Acute (8) Nicotine dependence Current Visit: No Status: Chronic Qualifiers: Nicotine product type: cigarettes (9) AIDS Current Visit: No Status: Chronic (10) Asthma Current Visit: No Status: Chronic Qualifiers: Asthma severity: unspecified severity Asthma complication type: uncomplicated (11) HTN (hypertension) Current Visit: Yes Status: Chronic (12) HLD (hyperlipidemia) Current Visit: Yes Status: Chronic - Initial Treatment Plan Initial Treatment Plan: 1) Continue Zoloft 50 mg po daily and Seroquel 300 mg po HS. 2) Continue inpatient detoxification
--- NOTE | 2019-10-06 13:33 | PN ---
S CIWA - CIWA Score Nausea/Vomitin Muscle Tremors: None Anxiety: 1-Mildly Anxious Agitation: 1-Slight > Activity Paroxysmal Sweats: 2 Orientation: 0-Oriented Tacttile Disturbances: 2-Mild Itch/Numbness/Burn Auditory Disturbances: 0-None Visual Disturbances: 0-None Headache: 0-None Present CIWA-Ar Total Score: 8 BHS COWS - Scale Resting Pulse: 0= [place] 80 or Below Sweatin= Chills/Flushing Restless Observation: 1= Difficult to Sit Still Pupil Size: 1= Pupils >than Normal Bone or Joint Aches: 2= Severe Diffuse Aches Runny Nose/ Eye Tearin= None GI Upset > 30mins: 1= Stomach Cramp Tremor Observation of Outstretched Hands: 0= None Yawning Observation: 0= None Anxiety or Irritability: 1=Feels Anxious/Irritable Goose Flesh Skin: 0=Smooth Skin COWS Score: 7 BHS Progress Note (SOAP) Subjective: interrupted sleep, night sweats ,nausea , bodyaches , wants ensure - decreased appetite. Objective: 10/06/19 13:31 Vital Signs Temperature 97.9 F 10/06/19 09:16 Pulse Rate 65 10/06/19 09:16 Respiratory Rate 18 10/06/19 09:16 Blood Pressure 131/78 10/06/19 09:16 O2 Sat by Pulse Oximetry (%) Laboratory Tests 10/05/19 10/05/19 10/05/19 11:45 12:45 12:45 WBC 6.9 RBC 3.55 L Hgb 12.7 Hct 36.7 MCV 103.4 H MCH 35.7 H MCHC 34.5 RDW 14.6 Plt Count 346 D MPV 8.1 Sodium 138 Potassium 4.1 Chloride 108 H Carbon Dioxide 24 Anion Gap 7 L BUN 20.9 H Creatinine 0.9 Est GFR (CKD-EPI)AfAm 85.20 Est GFR (CKD-EPI)NonAf 73.51 Random Glucose 75 Calcium 9.0 Total Bilirubin 0.2 AST 16 ALT 23 Alkaline Phosphatase 109 Total Protein 8.0 Albumin 3.9 POC Urine HCG, Qual Negative pt aox3 in nad , lying in bed Assessment: 10/06/19 13:32 withdrawal sz's Plan: cont. detox increase fluids ensure bid
[2019-10-06] MEDS: QUEtiapine FUMARATE 300 MG TABLET PO SCH (22:30)
[2019-10-06] MEDS: SENNOSIDES 8.6MG TABLET (FP) PO SCH (22:30)
[2019-10-06] MEDS: ATORVASTATIN CA 20 MG TABLET (FP) PO SCH (22:30)
[2019-10-06] MEDS: THIAMINE HCL 100 MG TABLET (FP) PO SCH (22:30)
[2019-10-07] MEDS: IBUPROFEN 400 MG TABLET (FP) PO PRN ×2 (03:00→22:36)
[2019-10-07] MEDS: METHOCARBAMOL 500 MG TABLET PO PRN ×2 (03:00→22:36)
[2019-10-07] MEDS: chlordiazePOXIDE HCL 25 MG CAPSULE PO SCH ×4 (05:43→22:34)
[2019-10-07] MEDS: ACETAMINOPHEN 325 MG TABLET (FP) PO PRN (05:44)
[2019-10-07] MEDS ORDERED: METHADONE HCL 10 MG TABLET (FOR DETOX USE ONLY) PO ONE (10:00)
[2019-10-07] MEDS: PRENATAL VITAMINS W/ FOLIC ACID TABLET (FP) PO SCH (10:35)
[2019-10-07] MEDS: ASPIRIN 81 MG CHEWABLE TABLETS PO SCH (10:36)
[2019-10-07] MEDS: NICOTINE 14 MG/24 HOURS TOPICAL PATCH TD SCH (10:36)
[2019-10-07] MEDS: amLODIPine BESYLATE 10 MG TABLET (FP) PO SCH (10:36)
[2019-10-07] MEDS: ELVITEG/COB/EMTRI/TENOF (GENVOYA) TABLET (NF) PO SCH (10:36)
[2019-10-07] MEDS: SERTRALINE HCL 50 MG TABLET (FP) PO SCH (10:36)
--- NOTE | 2019-10-07 17:56 | PN ---
S CIWA - CIWA Score Nausea/Vomitin-No Nausea/No Vomiting Muscle Tremors: 2 Anxiety: 2 Agitation: 1-Slight > Activity Paroxysmal Sweats: 3 (and Hot/cold Sensations.) Orientation: 2-Disoriented Date<2 days Tacttile Disturbances: 1-Very Mild Itch/Numbness Auditory Disturbances: 0-None Visual Disturbances: 0-None Headache: 0-None Present CIWA-Ar Total Score: 11 BHS COWS - Scale Resting Pulse: 0= [place] 80 or Below Sweatin= Chills/Flushing Restless Observation: 1= Difficult to Sit Still Pupil Size: 0= Normal to Room Light Bone or Joint Aches: 2= Severe Diffuse Aches Runny Nose/ Eye Tearin= None GI Upset > 30mins: 0= None Tremor Observation of Outstretched Hands: 2= Slight Tremor Visible Yawning Observation: 1= 1-2x During Session Anxiety or Irritability: 2=Irritable/Anxious Goose Flesh Skin: 3=Piloerection COWS Score: 12 S Progress Note (SOAP) Subjective: Interrupted Sleep, Sweating, Tremors, Body Aches. Objective: PATIENT A & O X 2 (UNCERTAIN ABOUT CURRENT DAY/ DATE). PATIENT OBSERVED AMBULATING ON DETOX UNIT UNASSISTED. IN NO ACUTE DISTRESS. 10/07/19 17:55 Vital Signs Temperature 97.3 F L 10/07/19 12:30 Pulse Rate 68 10/07/19 12:30 Respiratory Rate 16 10/07/19 12:30 Blood Pressure 113/58 L 10/07/19 12:30 O2 Sat by Pulse Oximetry (%) Laboratory Tests 10/05/19 10/05/19 10/05/19 11:45 12:45 12:45 WBC 6.9 RBC 3.55 L Hgb 12.7 Hct 36.7 MCV 103.4 H MCH 35.7 H MCHC 34.5 RDW 14.6 Plt Count 346 D MPV 8.1 Sodium 138 Potassium 4.1 Chloride 108 H Carbon Dioxide 24 Anion Gap 7 L BUN 20.9 H Creatinine 0.9 Est GFR (CKD-EPI)AfAm 85.20 Est GFR (CKD-EPI)NonAf 73.51 Random Glucose 75 Calcium 9.0 Total Bilirubin 0.2 AST 16 ALT 23 Alkaline Phosphatase 109 Total Protein 8.0 Albumin 3.9 POC Urine HCG, Qual Negative RPR Titer 10/05/19 12:45 WBC RBC Hgb Hct MCV MCH MCHC RDW Plt Count MPV Sodium Potassium Chloride Carbon Dioxide Anion Gap BUN Creatinine Est GFR (CKD-EPI)AfAm Est GFR (CKD-EPI)NonAf Random Glucose Calcium Total Bilirubin AST ALT Alkaline Phosphatase Total Protein Albumin POC Urine HCG, Qual RPR Titer Nonreactive LABS NOTED Assessment: 10/07/19 17:55 WITHDRAWAL SYMPTOMS. Plan: CONTINUE DETOX. INCREASE DAILY ORAL WATER INTAKE.
[2019-10-07] MEDS: ATORVASTATIN CA 20 MG TABLET (FP) PO SCH (22:34)
[2019-10-07] MEDS: SENNOSIDES 8.6MG TABLET (FP) PO SCH (22:34)
[2019-10-07] MEDS: THIAMINE HCL 100 MG TABLET (FP) PO SCH (22:34)
[2019-10-07] MEDS: QUEtiapine FUMARATE 300 MG TABLET PO SCH (22:34)
[2019-10-08] MEDS ORDERED: chlordiazePOXIDE HCL 10 MG CAPSULE PO PRN
[2019-10-08] MEDS: chlordiazePOXIDE HCL 10 MG CAPSULE PO SCH ×4 (06:44→22:41)
[2019-10-08] MEDS ORDERED: METHADONE HCL 5 MG TABLET (FOR DETOX USE ONLY) ONE (09:22)
[2019-10-08] MEDS ORDERED: METHADONE HCL 10 MG TABLET (FOR DETOX USE ONLY) ONE (09:23)
[2019-10-08] MEDS ORDERED: METHADONE (DETOX) 10 MG, METHADONE (DETOX) 5 MG PO ONE (10:00)
[2019-10-08] MEDS: PRENATAL VITAMINS W/ FOLIC ACID TABLET (FP) PO SCH (10:50)
[2019-10-08] MEDS: amLODIPine BESYLATE 10 MG TABLET (FP) PO SCH (10:50)
[2019-10-08] MEDS: ASPIRIN 81 MG CHEWABLE TABLETS PO SCH (10:50)
[2019-10-08] MEDS: SERTRALINE HCL 50 MG TABLET (FP) PO SCH (10:51)
[2019-10-08] MEDS: ELVITEG/COB/EMTRI/TENOF (GENVOYA) TABLET (NF) PO SCH (10:54)
[2019-10-08] MEDS: NICOTINE 14 MG/24 HOURS TOPICAL PATCH TD SCH (10:54)
[2019-10-08] MEDS: IBUPROFEN 400 MG TABLET (FP) PO PRN (10:57)
--- NOTE | 2019-10-08 17:01 | PN ---
S CIWA - CIWA Score Nausea/Vomitin-No Nausea/No Vomiting Muscle Tremors: 2 Anxiety: 2 Agitation: 1-Slight > Activity Paroxysmal Sweats: 2 Orientation: 0-Oriented Tacttile Disturbances: 0-None Auditory Disturbances: 0-None Visual Disturbances: 0-None Headache: 0-None Present CIWA-Ar Total Score: 7 BHS COWS - Scale Resting Pulse: 0= [place] 80 or Below Sweatin= Chills/Flushing Restless Observation: 0= Sits Still Pupil Size: 0= Normal to Room Light Bone or Joint Aches: 1= Mild Discomfort Runny Nose/ Eye Tearin= Runny Nose/Eyes GI Upset > 30mins: 1= Stomach Cramp Tremor Observation of Outstretched Hands: 2= Slight Tremor Visible Yawning Observation: 0= None Anxiety or Irritability: 1=Feels Anxious/Irritable Goose Flesh Skin: 0=Smooth Skin COWS Score: 8 BHS Progress Note (SOAP) Subjective: Chills, nausea, tremor, sweating, a litte diarrhea, interrupted sleep Objective: 10/08/19 16:59 Last Vital Signs Temp Pulse Resp BP Pulse Ox 97.7 F 67 16 124/67 10/08/19 09:15 10/08/19 09:15 10/08/19 09:15 10/08/19 09:15 Laboratory Tests 10/05/19 10/05/19 10/05/19 11:45 12:45 12:45 WBC 6.9 RBC 3.55 L Hgb 12.7 Hct 36.7 MCV 103.4 H MCH 35.7 H MCHC 34.5 RDW 14.6 Plt Count 346 D MPV 8.1 Sodium 138 Potassium 4.1 Chloride 108 H Carbon Dioxide 24 Anion Gap 7 L BUN 20.9 H Creatinine 0.9 Est GFR (CKD-EPI)AfAm 85.20 Est GFR (CKD-EPI)NonAf 73.51 Random Glucose 75 Calcium 9.0 Total Bilirubin 0.2 AST 16 ALT 23 Alkaline Phosphatase 109 Total Protein 8.0 Albumin 3.9 POC Urine HCG, Qual Negative RPR Titer 10/05/19 12:45 WBC RBC Hgb Hct MCV MCH MCHC RDW Plt Count MPV Sodium Potassium Chloride Carbon Dioxide Anion Gap BUN Creatinine Est GFR (CKD-EPI)AfAm Est GFR (CKD-EPI)NonAf Random Glucose Calcium Total Bilirubin AST ALT Alkaline Phosphatase Total Protein Albumin POC Urine HCG, Qual RPR Titer Nonreactive Labs reviewed: bun 20.9 (high) Assessment: 10/08/19 17:00 Withdrawal sxs Noted with azotemia Plan: Continue detox Azotemia: encouraged PO water hydration
[2019-10-08] MEDS: MELATONIN 5 MG TABLETS PO PRN (22:41)
[2019-10-08] MEDS: QUEtiapine FUMARATE 300 MG TABLET PO SCH (22:41)
[2019-10-08] MEDS: ATORVASTATIN CA 20 MG TABLET (FP) PO SCH (22:41)
[2019-10-08] MEDS: METHOCARBAMOL 500 MG TABLET PO PRN (22:41)
[2019-10-08] MEDS: THIAMINE HCL 100 MG TABLET (FP) PO SCH (22:41)
[2019-10-08] MEDS: SENNOSIDES 8.6MG TABLET (FP) PO SCH (22:41)
[2019-10-09] MEDS: chlordiazePOXIDE HCL 10 MG CAPSULE PO SCH ×2 (05:57→17:22)
[2019-10-09] MEDS: METHOCARBAMOL 500 MG TABLET PO PRN (05:59)
[2019-10-09] MEDS ORDERED: METHADONE HCL 10 MG TABLET (FOR DETOX USE ONLY) PO ONE (10:00)
[2019-10-09] MEDS: PRENATAL VITAMINS W/ FOLIC ACID TABLET (FP) PO SCH (10:36)
[2019-10-09] MEDS: ELVITEG/COB/EMTRI/TENOF (GENVOYA) TABLET (NF) PO SCH (10:36)
[2019-10-09] MEDS: ASPIRIN 81 MG CHEWABLE TABLETS PO SCH (10:36)
[2019-10-09] MEDS: NICOTINE 14 MG/24 HOURS TOPICAL PATCH TD SCH (10:36)
[2019-10-09] MEDS: SERTRALINE HCL 50 MG TABLET (FP) PO SCH (10:36)
[2019-10-09] MEDS: amLODIPine BESYLATE 10 MG TABLET (FP) PO SCH (10:36)
--- NOTE | 2019-10-09 11:13 | PN ---
[facility] CIWA - CIWA Score Nausea/Vomitin-Mild Nausea/No Vomiting Muscle Tremors: 2 Anxiety: 1-Mildly Anxious Agitation: 1-Slight > Activity Paroxysmal Sweats: 1-Minimal Palms Moist Orientation: 0-Oriented Tacttile Disturbances: 0-None Auditory Disturbances: 0-None Visual Disturbances: 0-None Headache: 0-None Present CIWA-Ar Total Score: 6 S COWS - Scale Resting Pulse: 0= [place] 80 or Below Sweatin= No chills or Flushing Restless Observation: 0= Sits Still Pupil Size: 0= Normal to Room Light Bone or Joint Aches: 1= Mild Discomfort Runny Nose/ Eye Tearin= Nasal Congestion GI Upset > 30mins: 0= None Tremor Observation of Outstretched Hands: 0= None Yawning Observation: 0= None Anxiety or Irritability: 1=Feels Anxious/Irritable Goose Flesh Skin: 0=Smooth Skin COWS Score: 3 S Progress Note (SOAP) Subjective: Pt admitted for dual detox. She is using heroin, Xanax and alcohol. Pt going to rehab at [facility] tomorrow. no complaints today. O: Laboratory Tests 10/05/19 10/05/19 10/05/19 11:45 12:45 12:45 WBC 6.9 RBC 3.55 L Hgb 12.7 Hct 36.7 MCV 103.4 H MCH 35.7 H MCHC 34.5 RDW 14.6 Plt Count 346 D MPV 8.1 Sodium 138 Potassium 4.1 Chloride 108 H Carbon Dioxide 24 Anion Gap 7 L BUN 20.9 H Creatinine 0.9 Est GFR (CKD-EPI)AfAm 85.20 Est GFR (CKD-EPI)NonAf 73.51 Random Glucose 75 Calcium 9.0 Total Bilirubin 0.2 AST 16 ALT 23 Alkaline Phosphatase 109 Total Protein 8.0 Albumin 3.9 POC Urine HCG, Qual Negative RPR Titer 10/05/19 12:45 WBC RBC Hgb Hct MCV MCH MCHC RDW Plt Count MPV Sodium Potassium Chloride Carbon Dioxide Anion Gap BUN Creatinine Est GFR (CKD-EPI)AfAm Est GFR (CKD-EPI)NonAf Random Glucose Calcium Total Bilirubin AST ALT Alkaline Phosphatase Total Protein Albumin POC Urine HCG, Qual RPR Titer Nonreactive 10/08/19 10/08/19 10/09/19 16:50 20:41 00:34 Temperature 98.2 F 96.4 F L Pulse Rate 63 62 Respiratory 18 18 18 Rate Blood Pressure 128/72 122/62 10/09/19 10/09/19 10/09/19 03:33 06:51 09:01 Temperature 97.2 F L 97.3 F L Pulse Rate 57 L 68 Respiratory 18 18 16 Rate Blood Pressure 97/55 L 125/63 a/p: continue detox protocols- anticipate d/c to [facility] tomorrow
[2019-10-09] MEDS: IBUPROFEN 400 MG TABLET (FP) PO PRN (17:52)
[2019-10-09] MEDS: QUEtiapine FUMARATE 300 MG TABLET PO SCH (21:25)
[2019-10-09] MEDS: SENNOSIDES 8.6MG TABLET (FP) PO SCH (21:25)
[2019-10-09] MEDS: THIAMINE HCL 100 MG TABLET (FP) PO SCH (21:25)
[2019-10-09] MEDS: ATORVASTATIN CA 20 MG TABLET (FP) PO SCH (21:25)
[2019-10-09] MEDS: MELATONIN 5 MG TABLETS PO PRN (21:26)
[2019-10-10] MEDS ORDERED: chlordiazePOXIDE HCL 10 MG CAPSULE PO ONE (05:00)
[2019-10-10] MEDS ORDERED: METHADONE HCL 5 MG TABLET (FOR DETOX USE ONLY) PO ONE (06:00)
[2019-10-10 09:58] VITALS: BP 125/71; PULSE 66; TEMP 98.1
--- NOTE | 2019-10-10 10:14 | PN ---
[facility] CIWA - CIWA Score Nausea/Vomitin-No Nausea/No Vomiting Muscle Tremors: 1-None Visible, but [place] Anxiety: 1-Mildly Anxious Agitation: 0-Normal Activity Orientation: 0-Oriented Tacttile Disturbances: 0-None Auditory Disturbances: 0-None Visual Disturbances: 0-None Headache: 0-None Present S COWS - Scale Resting Pulse: 0= [place] 80 or Below Sweatin= No chills or Flushing Restless Observation: 0= Sits Still Pupil Size: 0= Normal to Room Light Bone or Joint Aches: 0= None Runny Nose/ Eye Tearin= None GI Upset > 30mins: 0= None Tremor Observation of Outstretched Hands: 0= None Yawning Observation: 0= None Anxiety or Irritability: 1=Feels Anxious/Irritable Goose Flesh Skin: 0=Smooth Skin COWS Score: 1 [facility] Progress Note (SOAP) Subjective: alert,no complaint Objective: 10/10/19 10:13 Vital Signs Temperature 98.1 F 10/10/19 09:04 Pulse Rate 66 10/10/19 09:04 Respiratory Rate 18 10/10/19 09:04 Blood Pressure 125/71 10/10/19 09:04 O2 Sat by Pulse Oximetry (%) Assessment: 10/10/19 10:13 detox completed,no withdrawal symptom Plan: discharge today,follow up with after care program as arrangement
--- NOTE | 2019-10-10 10:17 | DS ---
[facility] Detox Discharge Summary Admission Date: 10/05/19 Discharge Date: 10/10/19 - History Present History: Alcohol Dependence, Cocaine Dependence, Opioid Dependence, Sedative Dependence Additional Comments: alert,oriented x 3 heart normal heart sound,s1s2 lung clear,no wheezing no abdominal pain ambulation on the unit stable for discharge follow up with after care program as arrangement,and medical provider total time for discharge 35 mins Pertinent Past History: hypertension depression hiv asthma - Physical Exam Results Vital Signs: Vital Signs Temperature 98.1 F 10/10/19 09:04 Pulse Rate 66 10/10/19 09:04 Respiratory Rate 18 10/10/19 09:04 Blood Pressure 125/71 10/10/19 09:04 O2 Sat by Pulse Oximetry (%) Pertinent Admission Physical Exam Findings: withdrawal signs and symptom Laboratory Last Values WBC 6.9 K/mm3 (4.0-10.0) 10/05/19 12:45 RBC 3.55 M/mm3 (3.60-5.2) L 10/05/19 12:45 Hgb 12.7 GM/dL (10.7-15.3) 10/05/19 12:45 Hct 36.7 % (32.4-45.2) 10/05/19 12:45 MCV 103.4 fl (80-96) H 10/05/19 12:45 MCH 35.7 pg (25.7-33.7) H 10/05/19 12:45 MCHC 34.5 g/dl (32.0-36.0) 10/05/19 12:45 RDW 14.6 % (11.6-15.6) 10/05/19 12:45 Plt Count 346 K/MM3 (134-434) D 10/05/19 12:45 MPV 8.1 fl (7.5-11.1) 10/05/19 12:45 Sodium 138 mmol/L (136-145) 10/05/19 12:45 Potassium 4.1 mmol/L (3.5-5.1) 10/05/19 12:45 Chloride 108 mmol/L (98-107) H 10/05/19 12:45 Carbon Dioxide 24 mmol/L (21-32) 10/05/19 12:45 Anion Gap 7 MMOL/L (8-16) L 10/05/19 12:45 BUN 20.9 mg/dL (7-18) H 10/05/19 12:45 Creatinine 0.9 mg/dL (0.55-1.3) 10/05/19 12:45 Est GFR (CKD-EPI)AfAm 85.20 10/05/19 12:45 Est GFR (CKD-EPI)NonAf 73.51 10/05/19 12:45 Random Glucose 75 mg/dL (74-106) 10/05/19 12:45 Calcium 9.0 mg/dL (8.5-10.1) 10/05/19 12:45 Total Bilirubin 0.2 mg/dL (0.2-1) 10/05/19 12:45 AST 16 U/L (15-37) 10/05/19 12:45 ALT 23 U/L (13-61) 10/05/19 12:45 Alkaline Phosphatase 109 U/L (45-117) 10/05/19 12:45 Total Protein 8.0 g/dl (6.4-8.2) 10/05/19 12:45 Albumin 3.9 g/dl (3.4-5.0) 10/05/19 12:45 POC Urine HCG, Qual Negative 10/05/19 11:45 RPR Titer Nonreactive (NONREACTIVE) 10/05/19 12:45 Vital Signs Temperature 98.1 F 10/10/19 09:04 Pulse Rate 66 10/10/19 09:04 Respiratory Rate 18 10/10/19 09:04 Blood Pressure 125/71 10/10/19 09:04 O2 Sat by Pulse Oximetry (%) - Treatment Hospital Course: Detox Protocol Followed, Detoxed Safely, Responded well, Discharged Condition Good Patient has Accepted a Rehab Referral to: declined - Medication Discharge Medications: Ambulatory Orders Amlodipine Besylate [Norvasc -] 10 mg PO DAILY 12/25/18 Aspirin [ASA -] 81 mg PO DAILY 12/25/18 Atorvastatin Ca [Lipitor] 20 mg PO HS 12/25/18 Elviteg/Cob/Emtri/Tenof Alafen [Genvoya (Non-Formulary)] 1 each PO DAILY Quetiapine Fumarate [Seroquel -] 300 mg PO HS 12/26/18 Sertraline HCl [Zoloft -] 50 mg PO DAILY 12/26/18 Ibuprofen 400 mg PO TID PRN 08/30/19 Albuterol Sulfate Inhaler - [Ventolin Hfa Inhaler -] 2 inh PO Q4H PRN 10/05/19 - Diagnosis (1) Opioid dependence with withdrawal Current Visit: Yes Status: Acute (2) Alcohol dependence with withdrawal, uncomplicated Current Visit: Yes Status: Acute (3) Cocaine dependence Current Visit: Yes Status: Acute (4) Sedative hypnotic or anxiolytic dependence Current Visit: Yes Status: Acute (5) HLD (hyperlipidemia) Current Visit: Yes Status: Chronic (6) HTN (hypertension) Current Visit: Yes Status: Chronic (7) AIDS Current Visit: No Status: Chronic (8) Asthma Current Visit: No Status: Chronic Qualifiers: Asthma severity: unspecified severity Asthma complication type: uncomplicated - AMA Did Patient Leave Against Medical Advice: No
== END 2019-10-10 09:53 | disposition home or self-care (01) | DRG 773 ==
LOC: YASAS 11:10 → Y6N 12:16
PROVIDERS: ADMIT Allergy & Immunology; ATTEND Allergy & Immunology
PROC: HZ2ZZZZ Detoxification Services for Substance Abuse Treatment (ICD-10-PCS; principal; 2019-10-05)
DX: F11.23 Opioid dependence with withdrawal (principal); F10.230 Alcohol dependence with withdrawal, uncomplicated; F13.20 Sedative, hypnotic or anxiolytic dependence, uncomplicated; F14.20 Cocaine dependence, uncomplicated; F17.210 Nicotine dependence, cigarettes, uncomplicated; F10.282 Alcohol dependence with alcohol-induced sleep disorder; F19.24 Other psychoactive substance dependence with psychoactive substance-induced mood disorder; B20 Human immunodeficiency virus [HIV] disease; I10 Essential (primary) hypertension; E78.5 Hyperlipidemia, unspecified; J45.909 Unspecified asthma, uncomplicated; R79.89 Other specified abnormal findings of blood chemistry; Z96.643 Presence of artificial hip joint, bilateral
CPT/HCPCS: 36415; 80053; 81025; 85027; 86593

== ENCOUNTER 2020-06-09 14:24 | Inpatient (IN) | payer OTHER ==
[2020-06-09 16:07] VITALS: BMI 29.0
[2020-06-09] MEDS ORDERED: MAGNESIUM CITRATE 300 ML BOTTLE PO PRN (16:35)
[2020-06-09] MEDS ORDERED: BISMUTH SUBSALICYLATE 524 MG/30 ML UD PO PRN (16:35)
[2020-06-09] MEDS ORDERED: cloNIDine HCL 0.1 MG TABLET PO PRN (16:35)
[2020-06-09] MEDS ORDERED: METHOCARBAMOL 500 MG TABLET PO PRN (16:35)
[2020-06-09] MEDS ORDERED: MAGNESIUM HYDROX 2400MG/30ML ORAL SUSPENSION 30 ML CUP PO PRN (16:35)
[2020-06-09] MEDS ORDERED: NICOTINE POLACRILEX 2 MG GUM BUC PRN (16:35)
[2020-06-09] MEDS ORDERED: MENTHOL/PHENOL 1 EACH UD MM PRN (16:35)
[2020-06-09] MEDS ORDERED: MAG HYDROX/AL HYDROX/SIMETH 30 ML UNIT-DOSE CUP PO PRN (16:35)
[2020-06-09] MEDS ORDERED: IBUPROFEN 400 MG TABLET (FP) PO PRN (16:35)
[2020-06-09] MEDS ORDERED: ACETAMINOPHEN 325 MG TABLET (FP) PO PRN (16:35)
[2020-06-09] MEDS ORDERED: ALBUTEROL SO4 HFA INHALER IH PRN (17:55)
[2020-06-09] MEDS ORDERED: METHADONE HCL 10 MG TABLET (FOR DETOX USE ONLY) PO ONE (18:00)
[2020-06-09] MEDS: hydrOXYzine PAMOATE 25 MG CAPSULE (FP) PO SCH ×2 (18:46→22:04)
[2020-06-09] MEDS: ACETAMINOPHEN 325 MG TABLET (FP) PO PRN (18:48)
[2020-06-09] MEDS: chlordiazePOXIDE HCL 25 MG CAPSULE PO PRN (19:48)
[2020-06-09] MEDS: PATIENT'S OWN MEDICATION (NON-FORMULARY) (Fluticasone Propion/Salmeterol [Wixela 250-50 In PO SCH (22:03)
[2020-06-09] MEDS: chlordiazePOXIDE HCL 25 MG CAPSULE PO SCH (22:04)
[2020-06-09] MEDS: MELATONIN 5 MG TABLETS PO SCH (22:04)
[2020-06-09] MEDS: THIAMINE HCL 100 MG TABLET (FP) PO SCH (22:04)
[2020-06-09] MEDS: ATORVASTATIN CA 20 MG TABLET (FP) PO SCH (22:04)
[2020-06-10] MEDS: chlordiazePOXIDE HCL 25 MG CAPSULE PO PRN ×2 (00:04→14:46)
[2020-06-10] MEDS: ACETAMINOPHEN 325 MG TABLET (FP) PO PRN (02:31)
[2020-06-10] MEDS: chlordiazePOXIDE HCL 25 MG CAPSULE PO SCH ×4 (06:14→22:04)
[2020-06-10] MEDS: hydrOXYzine PAMOATE 25 MG CAPSULE (FP) PO SCH (06:15)
[2020-06-10] MEDS ORDERED: METHADONE HCL 5 MG TABLET (FOR DETOX USE ONLY) ONE (09:11)
[2020-06-10] MEDS ORDERED: METHADONE HCL 10 MG TABLET (FOR DETOX USE ONLY) ONE (09:12)
[2020-06-10] MEDS ORDERED: METHADONE (DETOX) 20 MG, METHADONE (DETOX) 5 MG PO ONE (10:00)
[2020-06-10] MEDS: ASPIRIN 81 MG CHEWABLE TABLETS PO SCH (10:01)
[2020-06-10] MEDS: amLODIPine BESYLATE 10 MG TABLET (FP) PO SCH (10:01)
[2020-06-10] MEDS: PRENATAL VITAMINS W/ FOLIC ACID TABLET (FP) PO SCH (10:01)
[2020-06-10] MEDS: SERTRALINE HCL 50 MG TABLET (FP) PO SCH (10:02)
[2020-06-10] MEDS: PATIENT'S OWN MEDICATION (NON-FORMULARY) (Fluticasone Propion/Salmeterol [Wixela 250-50 In PO SCH ×2 (10:06→22:06)
[2020-06-10] MEDS: NICOTINE 21 MG/24 HOURS TOPICAL PATCH TD SCH (10:07)
[2020-06-10 10:44] LABS: ALBUMIN 3.2 g/dl (3.4-5.0); BLOOD UREA NITROGEN 29.4 mg/dL (7-18); CALCIUM 8.8 mg/dL (8.5-10.1)
[2020-06-10 10:47] LABS: HEMATOCRIT 33.1 % (32.4-45.2); HEMOGLOBIN 11.1 GM/dL (10.7-15.3); MCH 33.4 pg (25.7-33.7); MCHC 33.5 g/dl (32.0-36.0); MEAN CELL VOLUME 99.6 fl (80-96); MEAN PLT VOLUME 7.7 fl (7.5-11.1); PLATELET COUNT 329 K/MM3 (134-434); RBC 3.32 M/mm3 (3.60-5.2); RDW 13.9 % (11.6-15.6); WHITE BLOOD COUNT 5.7 K/mm3 (4.0-10.0)
[2020-06-10 10:48] LABS: CREATININE 1.1 mg/dL (0.55-1.3)
[2020-06-10 10:49] LABS: BILIRUBIN,TOTAL 0.3 mg/dL (0.2-1); TOT PROT 7.9 g/dl (6.4-8.2)
[2020-06-10] MEDS: ELVITEG/COB/EMTRI/TENOF (GENVOYA) TABLET (NF) PO SCH (15:10)
[2020-06-10] MEDS: ONDANSETRON *ODT* 4 MG TABLET SL PRN (18:42)
[2020-06-10] MEDS: hydrOXYzine PAMOATE 25 MG CAPSULE (FP) PO PRN (18:42)
[2020-06-10] MEDS: ATORVASTATIN CA 20 MG TABLET (FP) PO SCH (22:04)
[2020-06-10] MEDS: MELATONIN 5 MG TABLETS PO SCH (22:04)
[2020-06-10] MEDS: THIAMINE HCL 100 MG TABLET (FP) PO SCH (22:04)
[2020-06-10] MEDS: QUEtiapine FUMARATE 300 MG TABLET PO SCH (22:04)
[2020-06-11] MEDS: chlordiazePOXIDE HCL 25 MG CAPSULE PO SCH ×4 (05:45→22:12)
[2020-06-11] MEDS ORDERED: METHADONE HCL 10 MG TABLET (FOR DETOX USE ONLY) PO ONE (10:00)
[2020-06-11] MEDS: NICOTINE 21 MG/24 HOURS TOPICAL PATCH TD SCH (10:08)
[2020-06-11] MEDS: ASPIRIN 81 MG CHEWABLE TABLETS PO SCH (10:09)
[2020-06-11] MEDS: SERTRALINE HCL 50 MG TABLET (FP) PO SCH (10:09)
[2020-06-11] MEDS: PRENATAL VITAMINS W/ FOLIC ACID TABLET (FP) PO SCH (10:09)
[2020-06-11] MEDS: amLODIPine BESYLATE 10 MG TABLET (FP) PO SCH (10:09)
[2020-06-11] MEDS: ELVITEG/COB/EMTRI/TENOF (GENVOYA) TABLET (NF) PO SCH (10:13)
[2020-06-11] MEDS: PATIENT'S OWN MEDICATION (NON-FORMULARY) (Fluticasone Propion/Salmeterol [Wixela 250-50 In PO SCH ×2 (10:13→23:25)
[2020-06-11] MEDS ORDERED: FLU VACCINE (FLULAVAL) PF 60 MCG/0.5 ML SYRINGE 2020-2021 IM ONE (12:00)
[2020-06-11] MEDS: hydrOXYzine PAMOATE 25 MG CAPSULE (FP) PO PRN (12:22)
[2020-06-11] MEDS: chlordiazePOXIDE HCL 25 MG CAPSULE PO PRN (12:22)
[2020-06-11] MEDS: ONDANSETRON *ODT* 4 MG TABLET SL PRN (12:46)
[2020-06-11] MEDS: ACETAMINOPHEN 325 MG TABLET (FP) PO PRN (17:41)
[2020-06-11] MEDS: QUEtiapine FUMARATE 300 MG TABLET PO SCH (22:11)
[2020-06-11] MEDS: ATORVASTATIN CA 20 MG TABLET (FP) PO SCH (22:11)
[2020-06-11] MEDS: MELATONIN 5 MG TABLETS PO SCH (22:12)
[2020-06-11] MEDS: THIAMINE HCL 100 MG TABLET (FP) PO SCH (22:12)
[2020-06-12] MEDS ORDERED: chlordiazePOXIDE HCL 10 MG CAPSULE PO PRN
[2020-06-12] MEDS: chlordiazePOXIDE HCL 10 MG CAPSULE PO SCH ×4 (06:13→22:02)
[2020-06-12] MEDS: ELVITEG/COB/EMTRI/TENOF (GENVOYA) TABLET (NF) PO SCH (07:25)
[2020-06-12] MEDS ORDERED: METHADONE HCL 5 MG TABLET (FOR DETOX USE ONLY) ONE (09:21)
[2020-06-12] MEDS ORDERED: METHADONE HCL 10 MG TABLET (FOR DETOX USE ONLY) ONE (09:22)
[2020-06-12] MEDS ORDERED: METHADONE (DETOX) 10 MG, METHADONE (DETOX) 5 MG PO ONE (10:00)
[2020-06-12] MEDS: NICOTINE 21 MG/24 HOURS TOPICAL PATCH TD SCH (10:36)
[2020-06-12] MEDS: SERTRALINE HCL 50 MG TABLET (FP) PO SCH (10:37)
[2020-06-12] MEDS: ASPIRIN 81 MG CHEWABLE TABLETS PO SCH (10:37)
[2020-06-12] MEDS: PRENATAL VITAMINS W/ FOLIC ACID TABLET (FP) PO SCH (10:37)
[2020-06-12] MEDS: amLODIPine BESYLATE 10 MG TABLET (FP) PO SCH (10:38)
[2020-06-12] MEDS: PATIENT'S OWN MEDICATION (NON-FORMULARY) (Fluticasone Propion/Salmeterol [Wixela 250-50 In PO SCH ×2 (10:41→22:02)
[2020-06-12] MEDS: ACETAMINOPHEN 325 MG TABLET (FP) PO PRN (17:20)
[2020-06-12] MEDS: hydrOXYzine PAMOATE 25 MG CAPSULE (FP) PO PRN (18:59)
[2020-06-12] MEDS: ATORVASTATIN CA 20 MG TABLET (FP) PO SCH (22:02)
[2020-06-12] MEDS: THIAMINE HCL 100 MG TABLET (FP) PO SCH (22:02)
[2020-06-12] MEDS: QUEtiapine FUMARATE 300 MG TABLET PO SCH (22:02)
[2020-06-12] MEDS: SUVOREXANT 10 MG TABLET PO PRN (22:03)
[2020-06-13] MEDS: chlordiazePOXIDE HCL 10 MG CAPSULE PO SCH ×2 (05:42→17:49)
[2020-06-13] MEDS: ELVITEG/COB/EMTRI/TENOF (GENVOYA) TABLET (NF) PO SCH (07:13)
[2020-06-13] MEDS ORDERED: METHADONE HCL 10 MG TABLET (FOR DETOX USE ONLY) PO ONE (10:00)
[2020-06-13] MEDS: ASPIRIN 81 MG CHEWABLE TABLETS PO SCH (10:13)
[2020-06-13] MEDS: amLODIPine BESYLATE 10 MG TABLET (FP) PO SCH (10:13)
[2020-06-13] MEDS: SERTRALINE HCL 50 MG TABLET (FP) PO SCH (10:13)
[2020-06-13] MEDS: PATIENT'S OWN MEDICATION (NON-FORMULARY) (Fluticasone Propion/Salmeterol [Wixela 250-50 In PO SCH ×2 (10:17→21:29)
[2020-06-13] MEDS: PRENATAL VITAMINS W/ FOLIC ACID TABLET (FP) PO SCH (10:17)
[2020-06-13] MEDS: hydrOXYzine PAMOATE 25 MG CAPSULE (FP) PO PRN (13:18)
[2020-06-13] MEDS: NICOTINE 21 MG/24 HOURS TOPICAL PATCH TD SCH (13:20)
[2020-06-13] MEDS: THIAMINE HCL 100 MG TABLET (FP) PO SCH (21:28)
[2020-06-13] MEDS: SUVOREXANT 10 MG TABLET PO PRN (21:28)
[2020-06-13] MEDS: ATORVASTATIN CA 20 MG TABLET (FP) PO SCH (21:29)
[2020-06-13] MEDS: QUEtiapine FUMARATE 300 MG TABLET PO SCH (21:29)
[2020-06-14] MEDS ORDERED: chlordiazePOXIDE HCL 10 MG CAPSULE PO ONE (05:00)
[2020-06-14] MEDS ORDERED: METHADONE HCL 5 MG TABLET (FOR DETOX USE ONLY) PO ONE (06:00)
[2020-06-14 07:17] VITALS: BP 121/68
[2020-06-14] MEDS: ELVITEG/COB/EMTRI/TENOF (GENVOYA) TABLET (NF) PO SCH (07:36)
[2020-06-14 10:15] VITALS: PULSE 87; TEMP 97.4
[2020-06-14] MEDS: PRENATAL VITAMINS W/ FOLIC ACID TABLET (FP) PO SCH (10:18)
[2020-06-14] MEDS: ASPIRIN 81 MG CHEWABLE TABLETS PO SCH (10:18)
[2020-06-14] MEDS: amLODIPine BESYLATE 10 MG TABLET (FP) PO SCH (10:18)
[2020-06-14] MEDS: NICOTINE 21 MG/24 HOURS TOPICAL PATCH TD SCH (10:19)
[2020-06-14] MEDS: PATIENT'S OWN MEDICATION (NON-FORMULARY) (Fluticasone Propion/Salmeterol [Wixela 250-50 In PO SCH (10:20)
[2020-06-14] MEDS: SERTRALINE HCL 50 MG TABLET (FP) PO SCH (10:20)
== END 2020-06-14 12:15 | disposition other institution (70) | DRG 773 ==
LOC: YASAS 14:24 → Y6N 17:10
PROVIDERS: ADMIT Allergy & Immunology; ATTEND Allergy & Immunology
PROC: HZ2ZZZZ Detoxification Services for Substance Abuse Treatment (ICD-10-PCS; principal; 2020-06-09)
DX: F11.23 Opioid dependence with withdrawal (principal); F10.230 Alcohol dependence with withdrawal, uncomplicated; F13.230 Sedative, hypnotic or anxiolytic dependence with withdrawal, uncomplicated; F14.20 Cocaine dependence, uncomplicated; F12.20 Cannabis dependence, uncomplicated; F17.210 Nicotine dependence, cigarettes, uncomplicated; F31.9 Bipolar disorder, unspecified; F33.1 Major depressive disorder, recurrent, moderate; F19.24 Other psychoactive substance dependence with psychoactive substance-induced mood disorder; F19.282 Other psychoactive substance dependence with psychoactive substance-induced sleep disorder; I10 Essential (primary) hypertension; J44.9 Chronic obstructive pulmonary disease, unspecified; G47.00 Insomnia, unspecified; B20 Human immunodeficiency virus [HIV] disease; E78.5 Hyperlipidemia, unspecified; Z91.14 Patient's other noncompliance with medication regimen
CPT/HCPCS: 36415; 80053; 85027; 86780; C9803; G0008; Q0162; Q2036; U0003

== ENCOUNTER 2020-07-21 09:41 | Inpatient (IN) | payer OTHER ==
[2020-07-21 10:21] VITALS: BMI 29.7
[2020-07-21] MEDS ORDERED: ONDANSETRON *ODT* 4 MG TABLET SL PRN (10:48)
[2020-07-21] MEDS ORDERED: MAGNESIUM HYDROX 2400MG/30ML ORAL SUSPENSION 30 ML CUP PO PRN (10:48)
[2020-07-21] MEDS ORDERED: MENTHOL/PHENOL 1 EACH UD MM PRN (10:48)
[2020-07-21] MEDS ORDERED: BISMUTH SUBSALICYLATE 524 MG/30 ML UD PO PRN (10:48)
[2020-07-21] MEDS ORDERED: MAGNESIUM CITRATE 300 ML BOTTLE PO PRN (10:48)
[2020-07-21] MEDS ORDERED: ACETAMINOPHEN 325 MG TABLET (FP) PO PRN (10:48)
[2020-07-21] MEDS ORDERED: NICOTINE POLACRILEX 2 MG GUM BUC PRN (10:48)
[2020-07-21] MEDS ORDERED: METHADONE HCL 10 MG TABLET (FOR DETOX USE ONLY) PO ONE (10:48)
[2020-07-21] MEDS ORDERED: chlordiazePOXIDE HCL 25 MG CAPSULE PO PRN (10:48)
[2020-07-21] MEDS ORDERED: MAG HYDROX/AL HYDROX/SIMETH 30 ML UNIT-DOSE CUP PO PRN (10:48)
[2020-07-21] MEDS ORDERED: cloNIDine HCL 0.1 MG TABLET PO PRN (10:48)
[2020-07-21] MEDS: ASPIRIN 81 MG CHEWABLE TABLETS PO SCH (13:07)
[2020-07-21] MEDS: amLODIPine BESYLATE 10 MG TABLET (FP) PO SCH (13:07)
[2020-07-21] MEDS: hydrOXYzine PAMOATE 25 MG CAPSULE (FP) PO SCH ×3 (15:10→22:30)
[2020-07-21] MEDS: chlordiazePOXIDE HCL 25 MG CAPSULE PO SCH ×2 (17:24→22:30)
[2020-07-21] MEDS: THIAMINE HCL 100 MG TABLET (FP) PO SCH (22:30)
[2020-07-21] MEDS: MELATONIN 5 MG TABLETS PO SCH (22:30)
[2020-07-21] MEDS: ATORVASTATIN CA 20 MG TABLET (FP) PO SCH (22:30)
[2020-07-22] MEDS: METHOCARBAMOL 500 MG TABLET PO PRN ×2 (03:50→14:51)
[2020-07-22] MEDS: ACETAMINOPHEN 325 MG TABLET (FP) PO PRN (03:50)
[2020-07-22] MEDS: chlordiazePOXIDE HCL 25 MG CAPSULE PO SCH ×4 (05:25→22:33)
[2020-07-22] MEDS: hydrOXYzine PAMOATE 25 MG CAPSULE (FP) PO SCH ×5 (05:25→22:33)
[2020-07-22] MEDS ORDERED: METHADONE HCL 5 MG TABLET (FOR DETOX USE ONLY) ONE (08:36)
[2020-07-22] MEDS ORDERED: METHADONE HCL 10 MG TABLET (FOR DETOX USE ONLY) ONE (08:36)
[2020-07-22] MEDS ORDERED: METHADONE (DETOX) 20 MG, METHADONE (DETOX) 5 MG PO ONE (10:00)
[2020-07-22] MEDS: ASPIRIN 81 MG CHEWABLE TABLETS PO SCH (10:35)
[2020-07-22] MEDS: amLODIPine BESYLATE 10 MG TABLET (FP) PO SCH (10:36)
[2020-07-22] MEDS: NICOTINE 21 MG/24 HOURS TOPICAL PATCH TD SCH (10:36)
[2020-07-22] MEDS: IBUPROFEN 400 MG TABLET (FP) PO PRN (10:36)
[2020-07-22] MEDS: NICOTINE 7 MG/24 HOURS TOPICAL PATCH TD SCH (10:36)
[2020-07-22] MEDS: PRENATAL VITAMINS W/ FOLIC ACID TABLET (FP) PO SCH (10:41)
[2020-07-22] MEDS: SERTRALINE HCL 50 MG TABLET (FP) PO SCH (10:46)
[2020-07-22] MEDS ORDERED: EMTRICITABINE 200MG/TENOFOVIR 300MG PO SCH (12:30)
[2020-07-22] MEDS ORDERED: AZITHROMYCIN 250 MG TABLET PO ONE (13:19)
[2020-07-22] MEDS: ELVITEG/COB/EMTRI/TENOF (GENVOYA) TABLET (NF) PO SCH (14:48)
[2020-07-22] MEDS: THIAMINE HCL 100 MG TABLET (FP) PO SCH (22:33)
[2020-07-22] MEDS: QUEtiapine FUMARATE 300 MG TABLET PO SCH (22:33)
[2020-07-22] MEDS: MELATONIN 5 MG TABLETS PO SCH (22:33)
[2020-07-22] MEDS: ATORVASTATIN CA 20 MG TABLET (FP) PO SCH (22:33)
[2020-07-23] MEDS: chlordiazePOXIDE HCL 25 MG CAPSULE PO SCH ×4 (06:34→22:20)
[2020-07-23] MEDS: hydrOXYzine PAMOATE 25 MG CAPSULE (FP) PO SCH (06:34)
[2020-07-23] MEDS: ELVITEG/COB/EMTRI/TENOF (GENVOYA) TABLET (NF) PO SCH (07:40)
[2020-07-23] MEDS ORDERED: hydrOXYzine PAMOATE 25 MG CAPSULE (FP) PO PRN (08:40)
[2020-07-23] MEDS ORDERED: METHADONE HCL 10 MG TABLET (FOR DETOX USE ONLY) PO ONE (10:00)
[2020-07-23] MEDS: ASPIRIN 81 MG CHEWABLE TABLETS PO SCH (10:39)
[2020-07-23] MEDS: NICOTINE 7 MG/24 HOURS TOPICAL PATCH TD SCH (10:39)
[2020-07-23] MEDS: PRENATAL VITAMINS W/ FOLIC ACID TABLET (FP) PO SCH (10:40)
[2020-07-23] MEDS: NICOTINE 21 MG/24 HOURS TOPICAL PATCH TD SCH (10:40)
[2020-07-23] MEDS: AZITHROMYCIN 250 MG TABLET PO SCH (10:40)
[2020-07-23] MEDS: amLODIPine BESYLATE 10 MG TABLET (FP) PO SCH (10:40)
[2020-07-23] MEDS: SERTRALINE HCL 50 MG TABLET (FP) PO SCH (10:40)
[2020-07-23] MEDS ORDERED: guaiFENesin 200 MG/10 ML 10 ML UNIT-DOSE CUPS PO PRN (12:40)
[2020-07-23] MEDS: ACETAMINOPHEN 325 MG TABLET (FP) PO PRN ×2 (17:55→19:40)
[2020-07-23] MEDS: THIAMINE HCL 100 MG TABLET (FP) PO SCH (22:19)
[2020-07-23] MEDS: MELATONIN 5 MG TABLETS PO SCH (22:20)
[2020-07-23] MEDS: ATORVASTATIN CA 20 MG TABLET (FP) PO SCH (22:20)
[2020-07-23] MEDS: QUEtiapine FUMARATE 300 MG TABLET PO SCH (22:20)
[2020-07-24] MEDS ORDERED: chlordiazePOXIDE HCL 10 MG CAPSULE PO PRN
[2020-07-24] MEDS: chlordiazePOXIDE HCL 10 MG CAPSULE PO SCH ×4 (05:38→22:17)
[2020-07-24] MEDS ORDERED: METHADONE HCL 10 MG TABLET (FOR DETOX USE ONLY) ONE (09:32)
[2020-07-24] MEDS ORDERED: METHADONE HCL 5 MG TABLET (FOR DETOX USE ONLY) ONE (09:32)
[2020-07-24] MEDS ORDERED: METHADONE (DETOX) 10 MG, METHADONE (DETOX) 5 MG PO ONE (10:00)
[2020-07-24] MEDS: ELVITEG/COB/EMTRI/TENOF (GENVOYA) TABLET (NF) PO SCH (10:48)
[2020-07-24] MEDS: ASPIRIN 81 MG CHEWABLE TABLETS PO SCH (10:48)
[2020-07-24] MEDS: NICOTINE 21 MG/24 HOURS TOPICAL PATCH TD SCH (10:50)
[2020-07-24] MEDS: amLODIPine BESYLATE 10 MG TABLET (FP) PO SCH (10:50)
[2020-07-24] MEDS: NICOTINE 7 MG/24 HOURS TOPICAL PATCH TD SCH (10:50)
[2020-07-24] MEDS: PRENATAL VITAMINS W/ FOLIC ACID TABLET (FP) PO SCH (10:50)
[2020-07-24] MEDS: AZITHROMYCIN 250 MG TABLET PO SCH (10:51)
[2020-07-24] MEDS: SERTRALINE HCL 50 MG TABLET (FP) PO SCH (10:51)
[2020-07-24 13:07] LABS: POTASSIUM 4.4 mmol/L (3.5-5.1)
[2020-07-24 13:08] LABS: HEMATOCRIT 37.4 % (32.4-45.2); HEMOGLOBIN 12.3 GM/dL (10.7-15.3); MCH 33.5 pg (25.7-33.7); MCHC 32.8 g/dl (32.0-36.0); MEAN CELL VOLUME 102.4 fl (80-96); MEAN PLT VOLUME 8.5 fl (7.5-11.1); PLATELET COUNT 254 K/MM3 (134-434); RBC 3.65 M/mm3 (3.60-5.2); RDW 16.2 % (11.6-15.6); WHITE BLOOD COUNT 4.2 K/mm3 (4.0-10.0)
[2020-07-24 13:10] LABS: ALBUMIN 3.2 g/dl (3.4-5.0); BLOOD UREA NITROGEN 12.7 mg/dL (7-18); CALCIUM 8.8 mg/dL (8.5-10.1)
[2020-07-24 13:15] LABS: BILIRUBIN,TOTAL 0.3 mg/dL (0.2-1); CREATININE 0.9 mg/dL (0.55-1.3); TOT PROT 7.4 g/dl (6.4-8.2)
[2020-07-24] MEDS: ALBUTEROL SO4 HFA INHALER IH PRN (14:24)
[2020-07-24] MEDS: QUEtiapine FUMARATE 300 MG TABLET PO SCH (22:17)
[2020-07-24] MEDS: ATORVASTATIN CA 20 MG TABLET (FP) PO SCH (22:17)
[2020-07-24] MEDS: THIAMINE HCL 100 MG TABLET (FP) PO SCH (22:17)
[2020-07-24] MEDS: MELATONIN 5 MG TABLETS PO SCH (22:18)
[2020-07-25] MEDS: chlordiazePOXIDE HCL 10 MG CAPSULE PO SCH ×2 (05:21→17:46)
[2020-07-25] MEDS: METHOCARBAMOL 500 MG TABLET PO PRN ×2 (05:50→13:33)
[2020-07-25] MEDS ORDERED: METHADONE HCL 10 MG TABLET (FOR DETOX USE ONLY) PO ONE (10:00)
[2020-07-25] MEDS: IBUPROFEN 400 MG TABLET (FP) PO PRN (10:03)
[2020-07-25] MEDS: AZITHROMYCIN 250 MG TABLET PO SCH (10:04)
[2020-07-25] MEDS: SERTRALINE HCL 50 MG TABLET (FP) PO SCH (10:04)
[2020-07-25] MEDS: ASPIRIN 81 MG CHEWABLE TABLETS PO SCH (10:04)
[2020-07-25] MEDS: NICOTINE 21 MG/24 HOURS TOPICAL PATCH TD SCH (10:06)
[2020-07-25] MEDS: amLODIPine BESYLATE 10 MG TABLET (FP) PO SCH (10:07)
[2020-07-25] MEDS: PRENATAL VITAMINS W/ FOLIC ACID TABLET (FP) PO SCH (10:07)
[2020-07-25] MEDS: NICOTINE 7 MG/24 HOURS TOPICAL PATCH TD SCH (10:08)
[2020-07-25] MEDS: ALBUTEROL SO4 HFA INHALER IH PRN (10:31)
[2020-07-25] MEDS: ELVITEG/COB/EMTRI/TENOF (GENVOYA) TABLET (NF) PO SCH (10:31)
[2020-07-25] MEDS: ACETAMINOPHEN 325 MG TABLET (FP) PO PRN ×2 (13:33→17:46)
[2020-07-25] MEDS: MELATONIN 5 MG TABLETS PO SCH (22:22)
[2020-07-25] MEDS: ATORVASTATIN CA 20 MG TABLET (FP) PO SCH (22:22)
[2020-07-25] MEDS: THIAMINE HCL 100 MG TABLET (FP) PO SCH (22:22)
[2020-07-25] MEDS: QUEtiapine FUMARATE 300 MG TABLET PO SCH (22:22)
[2020-07-26] MEDS ORDERED: chlordiazePOXIDE HCL 10 MG CAPSULE PO ONE (05:00)
[2020-07-26] MEDS ORDERED: METHADONE HCL 5 MG TABLET (FOR DETOX USE ONLY) PO ONE (06:00)
[2020-07-26] MEDS: ACETAMINOPHEN 325 MG TABLET (FP) PO PRN (06:37)
[2020-07-26] MEDS: ELVITEG/COB/EMTRI/TENOF (GENVOYA) TABLET (NF) PO SCH (11:00)
[2020-07-26] MEDS: NICOTINE 21 MG/24 HOURS TOPICAL PATCH TD SCH (11:00)
[2020-07-26] MEDS: amLODIPine BESYLATE 10 MG TABLET (FP) PO SCH (11:00)
[2020-07-26] MEDS: ASPIRIN 81 MG CHEWABLE TABLETS PO SCH (11:00)
[2020-07-26] MEDS: PRENATAL VITAMINS W/ FOLIC ACID TABLET (FP) PO SCH (11:01)
[2020-07-26] MEDS: SERTRALINE HCL 50 MG TABLET (FP) PO SCH (11:01)
[2020-07-26 14:14] VITALS: TEMP 98.1
[2020-07-26 14:24] VITALS: BP 98/59; PULSE 78
== END 2020-07-26 15:07 | disposition other institution (70) | DRG 774 ==
LOC: YASAS 09:41 → Y6N 11:01
PROVIDERS: ADMIT Allergy & Immunology; ATTEND Allergy & Immunology
PROC: HZ2ZZZZ Detoxification Services for Substance Abuse Treatment (ICD-10-PCS; principal; 2020-07-21)
DX: F10.230 Alcohol dependence with withdrawal, uncomplicated (principal); F14.20 Cocaine dependence, uncomplicated; F12.20 Cannabis dependence, uncomplicated; F17.210 Nicotine dependence, cigarettes, uncomplicated; F19.24 Other psychoactive substance dependence with psychoactive substance-induced mood disorder; F19.282 Other psychoactive substance dependence with psychoactive substance-induced sleep disorder; F33.1 Major depressive disorder, recurrent, moderate; I10 Essential (primary) hypertension; E78.5 Hyperlipidemia, unspecified; G47.00 Insomnia, unspecified; B20 Human immunodeficiency virus [HIV] disease; Z96.643 Presence of artificial hip joint, bilateral
CPT/HCPCS: 36415; 80053; 81025; 85027; 86780; C9803; U0003

== ENCOUNTER 2020-07-26 15:18 | Inpatient (IN) | payer OTHER ==
[2020-07-26] MEDS ORDERED: hydrOXYzine PAMOATE 25 MG CAPSULE (FP) PO PRN (15:24)
[2020-07-26] MEDS ORDERED: P-EPHED 60MG/TRIPROLIDI 2.5MG TABLET PO PRN (15:24)
[2020-07-26] MEDS ORDERED: MAG HYDROX/AL HYDROX/SIMETH 30 ML UNIT-DOSE CUP PO PRN (15:24)
[2020-07-26] MEDS ORDERED: MAGNESIUM CITRATE 300 ML BOTTLE PO PRN (15:24)
[2020-07-26] MEDS ORDERED: NICOTINE POLACRILEX 2 MG GUM BUC PRN (15:24)
[2020-07-26] MEDS ORDERED: LOPERAMIDE HCL 2 MG CAPSULE PO PRN (15:24)
[2020-07-26] MEDS ORDERED: MENTHOL/PHENOL 1 EACH UD MM PRN (15:24)
[2020-07-26] MEDS ORDERED: guaiFENesin 200 MG/10 ML 10 ML UNIT-DOSE CUPS PO PRN (15:24)
[2020-07-26] MEDS ORDERED: MAGNESIUM HYDROX 2400MG/30ML ORAL SUSPENSION 30 ML CUP PO PRN (15:24)
[2020-07-26] MEDS ORDERED: ACETAMINOPHEN 500 MG TABLET (FP) PO PRN (15:33)
[2020-07-26] MEDS ORDERED: ALBUTEROL SO4 HFA INHALER IH PRN (15:33)
[2020-07-26] MEDS: THIAMINE HCL 100 MG TABLET (FP) PO SCH (21:14)
[2020-07-26] MEDS: MELATONIN 5 MG TABLETS PO SCH (21:14)
[2020-07-26] MEDS: ATORVASTATIN CA 20 MG TABLET (FP) PO SCH (21:15)
[2020-07-26] MEDS: ACETAMINOPHEN 325 MG TABLET (FP) PO PRN (21:24)
[2020-07-27] MEDS ORDERED: PT OWN MED DRAWER 7, Y5N ONE ×3 (08:10→09:08)
[2020-07-27] MEDS: ELVITEG/COB/EMTRI/TENOF (GENVOYA) TABLET (NF) PO SCH (09:00)
[2020-07-27] MEDS: amLODIPine BESYLATE 10 MG TABLET (FP) PO SCH ×2 (09:07→09:26)
[2020-07-27] MEDS: NICOTINE 21 MG/24 HOURS TOPICAL PATCH TD SCH (09:26)
[2020-07-27] MEDS: PRENATAL VITAMINS W/ FOLIC ACID TABLET (FP) PO SCH (09:26)
[2020-07-27] MEDS: ASPIRIN 81 MG CHEWABLE TABLETS PO SCH (09:26)
[2020-07-27] MEDS ORDERED: EMTRICITABINE 200MG/TENOFOVIR 300MG PO SCH (10:00)
[2020-07-27] MEDS ORDERED: MIRTAZAPINE 15 MG TABLET (FP) PO SCH (10:00)
[2020-07-27] MEDS ORDERED: AZITHROMYCIN 250 MG TABLET PO SCH (10:00)
[2020-07-27] MEDS: MELATONIN 5 MG TABLETS PO SCH (21:09)
[2020-07-27] MEDS: THIAMINE HCL 100 MG TABLET (FP) PO SCH (21:09)
[2020-07-27] MEDS: ATORVASTATIN CA 20 MG TABLET (FP) PO SCH (21:09)
[2020-07-28] MEDS ORDERED: PT OWN MED DRAWER 7, Y5N ONE (08:07)
[2020-07-28] MEDS: ELVITEG/COB/EMTRI/TENOF (GENVOYA) TABLET (NF) PO SCH (09:00)
[2020-07-28] MEDS: ASPIRIN 81 MG CHEWABLE TABLETS PO SCH (09:08)
[2020-07-28] MEDS: NICOTINE 21 MG/24 HOURS TOPICAL PATCH TD SCH (09:08)
[2020-07-28] MEDS: PRENATAL VITAMINS W/ FOLIC ACID TABLET (FP) PO SCH (09:09)
[2020-07-28] MEDS: amLODIPine BESYLATE 10 MG TABLET (FP) PO SCH (09:09)
[2020-07-28] MEDS: IBUPROFEN 400 MG TABLET (FP) PO PRN (09:10)
[2020-07-28] MEDS: THIAMINE HCL 100 MG TABLET (FP) PO SCH (21:12)
[2020-07-28] MEDS: MELATONIN 5 MG TABLETS PO SCH (21:12)
[2020-07-28] MEDS: ATORVASTATIN CA 20 MG TABLET (FP) PO SCH (21:12)
[2020-07-29] MEDS ORDERED: PT OWN MED DRAWER 7, Y5N ONE ×3 (07:53→09:13)
[2020-07-29] MEDS: NICOTINE 21 MG/24 HOURS TOPICAL PATCH TD SCH (09:10)
[2020-07-29] MEDS: amLODIPine BESYLATE 10 MG TABLET (FP) PO SCH (09:10)
[2020-07-29] MEDS: ELVITEG/COB/EMTRI/TENOF (GENVOYA) TABLET (NF) PO SCH (09:10)
[2020-07-29] MEDS: PRENATAL VITAMINS W/ FOLIC ACID TABLET (FP) PO SCH (09:10)
[2020-07-29] MEDS: ASPIRIN 81 MG CHEWABLE TABLETS PO SCH (09:10)
[2020-07-29] MEDS: IBUPROFEN 400 MG TABLET (FP) PO PRN (10:49)
[2020-07-29] MEDS: SERTRALINE HCL 50 MG TABLET (FP) PO SCH (11:58)
[2020-07-29] MEDS: MELATONIN 5 MG TABLETS PO SCH (21:26)
[2020-07-29] MEDS: traZODone HCL 50 MG TABLET (FP) PO SCH (21:27)
[2020-07-29] MEDS: THIAMINE HCL 100 MG TABLET (FP) PO SCH (21:27)
[2020-07-29] MEDS: ATORVASTATIN CA 20 MG TABLET (FP) PO SCH (21:27)
[2020-07-29] MEDS ORDERED: QUEtiapine FUMARATE 300 MG TABLET PO SCH (22:00)
[2020-07-30] MEDS: ELVITEG/COB/EMTRI/TENOF (GENVOYA) TABLET (NF) PO SCH (09:00)
[2020-07-30] MEDS ORDERED: PT OWN MED DRAWER 7, Y5N ONE (09:39)
[2020-07-30] MEDS: ASPIRIN 81 MG CHEWABLE TABLETS PO SCH (09:39)
[2020-07-30] MEDS: NICOTINE 21 MG/24 HOURS TOPICAL PATCH TD SCH (09:39)
[2020-07-30] MEDS: amLODIPine BESYLATE 10 MG TABLET (FP) PO SCH (09:40)
[2020-07-30] MEDS: PRENATAL VITAMINS W/ FOLIC ACID TABLET (FP) PO SCH (09:40)
[2020-07-30] MEDS: SERTRALINE HCL 50 MG TABLET (FP) PO SCH (09:40)
[2020-07-30] MEDS: traZODone HCL 50 MG TABLET (FP) PO SCH (21:02)
[2020-07-30] MEDS: ATORVASTATIN CA 20 MG TABLET (FP) PO SCH (21:02)
[2020-07-30] MEDS: THIAMINE HCL 100 MG TABLET (FP) PO SCH (21:02)
[2020-07-30] MEDS: MELATONIN 5 MG TABLETS PO SCH (21:02)
[2020-07-30] MEDS: ACETAMINOPHEN 325 MG TABLET (FP) PO PRN (21:04)
[2020-07-30] MEDS: risperiDONE 1 MG TABLET PO SCH (21:04)
[2020-07-31] MEDS: ELVITEG/COB/EMTRI/TENOF (GENVOYA) TABLET (NF) PO SCH (08:02)
[2020-07-31] MEDS ORDERED: PT OWN MED DRAWER 7, Y5N ONE (08:04)
[2020-07-31 08:37] VITALS: BP 124/69; PULSE 71; TEMP 97.5
[2020-07-31] MEDS: amLODIPine BESYLATE 10 MG TABLET (FP) PO SCH (09:44)
[2020-07-31] MEDS: ASPIRIN 81 MG CHEWABLE TABLETS PO SCH (09:44)
[2020-07-31] MEDS: PRENATAL VITAMINS W/ FOLIC ACID TABLET (FP) PO SCH (09:44)
[2020-07-31] MEDS: risperiDONE 1 MG TABLET PO SCH (09:45)
[2020-07-31] MEDS: NICOTINE 21 MG/24 HOURS TOPICAL PATCH TD SCH (09:45)
[2020-07-31] MEDS ORDERED: SERTRALINE HCL 50 MG TABLET (FP) PO SCH (10:00)
== END 2020-07-31 09:47 | disposition home or self-care (01) | DRG 772 ==
LOC: YASAS 15:18 → Y3E 15:20
PROVIDERS: ADMIT Allergy & Immunology; ATTEND Allergy & Immunology
PROC: HZ42ZZZ Group Counseling for Substance Abuse Treatment, Cognitive-Behavioral (ICD-10-PCS; principal; 2020-07-26)
DX: F11.20 Opioid dependence, uncomplicated (principal); F10.20 Alcohol dependence, uncomplicated; F14.20 Cocaine dependence, uncomplicated; F12.20 Cannabis dependence, uncomplicated; F17.210 Nicotine dependence, cigarettes, uncomplicated; F19.24 Other psychoactive substance dependence with psychoactive substance-induced mood disorder; F19.282 Other psychoactive substance dependence with psychoactive substance-induced sleep disorder; F33.1 Major depressive disorder, recurrent, moderate; I10 Essential (primary) hypertension; E78.5 Hyperlipidemia, unspecified; B20 Human immunodeficiency virus [HIV] disease; J45.909 Unspecified asthma, uncomplicated; R44.0 Auditory hallucinations; G47.00 Insomnia, unspecified; Z96.643 Presence of artificial hip joint, bilateral; Z86.19 Personal history of other infectious and parasitic diseases
CPT/HCPCS: J2794